=== PATIENT | male | born 1955 | race Caucasian/White ===

== ENCOUNTER 2016-09-30 09:19 | Emergency (ER) | payer OTHER ==
[~2016-09-30 09:19] MED LIST: ALLO100T PO; ASPI81TA85 PO; FLUT11IN INH; GLIP2.5T6 PO; GUAI400T6 PO; HYDR12.55 PO; HYZA50TA2 PO; JANU50TA4 PO; LIPI10TA PO; MOME50SP; SING10TA32 PO; UROCTAB2 PO; allergy shots
[2016-09-30] MEDS ORDERED: ONDANSETRON 4MG/2ML VIAL (J2405) As Ordered ONE (09:42)
[2016-09-30] MEDS ORDERED: KETOROLAC 30 MG/ML VIAL (J1885) As Ordered ONE (09:42)
[2016-09-30 10:24] LABS: BASO % 0.3 % (0.0-1.0); EOS # 0.2 K/mm3 (0.0-0.50); EOS % 2.2 % (0.0-3.0); LARGE UNSTAINED CELL # 0.1 K/mm3 (0.0-0.4); LARGE UNSTAINED CELL % 1.6 % (0.0-4.0); MEAN CORPUSCULAR HEMOGLOBIN 30.1 pg (27.0-33.0); MEAN CORPUSCULAR HGB CONC 34.3 g/dl (32.0-36.5); MEAN CORPUSCULAR VOLUME 87.6 fl (80.0-96.0); MONO # 0.4 K/mm3 (0.0-0.8); MONO % 4.2 % (0.0-5.0); NEUTROPHILS % 68.7 % (36.0-66.0); PLATELET COUNT, AUTOMATED 249 k/mm3 (150-450); RED CELL DISTRIBUTION WIDTH 12.9 % (11.5-14.5); WHITE BLOOD COUNT 8.7 K/mm3 (4.0-10.0)
[2016-09-30 10:38] LABS: ALBUMIN 4.2 GM/DL (3.2-5.2); ALBUMIN/GLOBULIN RATIO 1.14 (1.00-1.93); BILIRUBIN,DIRECT 0.2 MG/DL (0.0-0.2); BILIRUBIN,TOTAL 0.8 MG/DL (0.2-1.0); CALCIUM LEVEL 9.5 MG/DL (8.8-10.2); CREATININE FOR GFR 1.33 MG/DL (0.70-1.30); GLOMERULAR FILTRATION RATE 57.8 (>49); POTASSIUM SERUM 4.2 MEQ/L (3.5-5.1); TOTAL PROTEIN 7.9 GM/DL (6.4-8.2)
[2016-09-30] MEDS ORDERED: MORPHINE 4 MG/ML 1ML SYRINGE As Ordered ONE (11:47)
--- NOTE | 2016-09-30 11:58 | REP ---
CT ABDOMEN/PELVIS WITHOUT IV OR ORAL CONTRAST: HISTORY: Right-sided flank pain. COMPARISON: CT study September 28, 2013. FINDINGS: Digital network coordinator radiograph is unremarkable. The lung bases show minimal fibrotic changes but are otherwise clear. No pleural effusion is seen. The liver and spleen are normal in size and homogeneous in texture. There are several small accessory splenules in the left upper quadrant, unchanged. Pancreas and gallbladder are unremarkable. No adrenal lesion is seen on either side. No retroperitoneal mass or adenopathy is seen. There is moderate hydronephrosis on the right with hydroureter due to a calculus in the distal ureter at the ureterovesical junction. This calculus measures 6 mm in greatest diameter. There is also a 3 mm intrarenal calculus in the right kidney lower pole. There is some perinephric stranding and periureteral stranding associated with this ureteral obstruction. No hydronephrosis is noted on the left. There is a tiny intrarenal calculus at the lower pole of the left kidney 1-2 mm in diameter. Small and large intestinal bowel loops are normal in the abdomen and pelvis. A normal appendix is seen in the right lower quadrant. No abdominal wall defect is seen. No bony destructive lesion is appreciated. IMPRESSION: 1. A 6 mm obstructive calculus right distal ureter at the ureterovesical junction with moderate right-sided hydronephrosis. 2. There is an intrarenal calculus in the lower pole of the right kidney and an intrarenal calculus in the lower pole of the left kidney. 3. Otherwise unremarkable CT study of the abdomen and pelvis. Signed by Anish Stevenson MD 09/30/2016 03:04 P
--- NOTE | 2016-09-30 12:43 | EDDOCDS ---
Nurse's Notes [facility] Name: Albert Garrett Age: 61 yrs Sex: Male : 1955 Arrival Date: 09/30/2016 Time: 09:19 Bed I6 / 28 Private MD: SHREYAS Beck Diagnosis: Hydronephrosis with renal and ureteral calculous obstruction-6mm right UVJ stone with moderate hydronephrosis Presentation: 09/30 09:25 Presenting complaint: Patient states: Right flank pain began this am. Acute mlb1 neurological deficits are not present. Mechanism of Injury: No Mechanism of Injury. Adult Sepsis Screening: The patient does not have new or worsening altered mentation. Patient's respiratory rate is less than 22. Systolic blood pressure is greater than 100. Patient has a qSOFA score of 0- Negative Sepsis Screen. Suicide/Homicide risk assessment- the patient denies having any suicidal and/or homicidal ideations and does not present with any other emotional, behavioral or mental health complaints. Status: Patient is not a director of family service center or dependent. Transition of care: patient was not received from another setting of care. 09:25 Acuity: VAL Level 3 mlb1 09:25 Method Of Arrival: Walkin/Carried/Asstd mlb1 Triage Assessment: 09:31 General: Appears uncomfortable, Behavior is appropriate for age, cooperative. Pain: mlb1 Location: right flank Pain currently is 10 out of 10 on a pain scale. HIV screening NA for this visit Offered previously. Historical: - Allergies: Advair Diskus; - Home Meds: 1. Janumet 50-500 mg oral tab 1 tab 2 times per day 2. Hyzaar 100-12.5 mg Oral tab 1 tab once daily 3. hydrochlorothiazide 12.5 mg Oral tab 1 tab once daily 4. guaifenesin 600 mg Oral TbER 1 tab every 12 hours 5. cetirizine 10 mg oral tab 1 tab once daily 6. Singulair 10 mg Oral tab 1 tab once daily 7. allopurinol 100 mg Oral tab 1 tab 2 times per day 8. Nasonex 50 mcg/actuation Nasal spry 2 sprays once daily 9. Asmanex HFA 200 mcg/actuation inhalation HFAA 1 puff 2 times per day 10. Lipitor 10 mg Oral tab 1 tab once daily 11. potassium citrate 10 mEq (1,080 mg) oral TbER 2 tabs 3 times per day 12. ipratropium bromide 18 mcg/actuation inhalation aero three times a day - PMHx: High Cholesterol; Diabetes - NIDDM: controlled; COPD; Hypertension; Kidney stones; - PSHx: Hernia repair; Arthroscopy, Knee; Lithotripsy; - Social history: Smoking status: Patient states former smoker of tobacco. No barriers to communication noted, The patient speaks fluent Tajik, Speaks appropriately for age. - Family history: Not pertinent. - : The pt / caregiver states he / she is not on anticoagulants. Home medication list is obtained from the patient. - Exposure Risk Screening:: None identified. Screenin:40 Screening information is obtained from the patient. Fall risk: No risks identified. dsf Assistance ADL's: requires no assistance with activities of daily living. Abuse/DV Screen: The patient / caregiver reports he/she is: not in a situation that causes fear, pain or injury. Nutritional screening: No deficits noted. Advance Directives: Currently, there is no health care proxy. home support is adequate. Assessment: 10:10 Adult Sepsis Screening: The patient does not have new or worsening altered mentation. dsf Patient's respiratory rate is less than 22. Systolic blood pressure is greater than 100. Patient has a qSOFA score of 0- Negative Sepsis Screen. General: Appears uncomfortable, Behavior is appropriate for age. Pain: Location: right flank Pain currently is 10 out of 10 on a pain scale. right testicle Quality of pain is described as stabbing, Pain began 0800. Neurological: Level of Consciousness is awake, alert, Oriented to person, place, time. Cardiovascular: Capillary refill < 3 seconds Heart tones S1 S2 present. Respiratory: Airway is patent Respiratory effort is even, unlabored, Respiratory pattern is regular, symmetrical, Breath sounds are clear bilaterally. GI: Abdomen is obese, Bowel sounds present X 4 quads. Abd is soft and non tender X 4 quads. Reports nausea. Derm: Skin is pink, warm & dry. Musculoskeletal: Reports right flank pain. 10:29 General: Appears in no apparent distress, comfortable, Behavior is appropriate for age, dsf cooperative. Pain: Location: right flank Pain currently is 3 out of 10 on a pain scale. Neurological: Level of Consciousness is awake, alert. Cardiovascular: Capillary refill < 3 seconds. Respiratory: Airway is patent Respiratory effort is even, unlabored, Respiratory pattern is regular, symmetrical. Derm: Skin is pink, warm & dry. 11:08 General: pt returned from CT. Appears in no distress at this time. pt smiling stating dsf he feels a lot better. 11:51 General: Appears in no apparent distress, Behavior is appropriate for age, cooperative. dsf Pain: Location: right flank Pain currently is 5 out of 10 on a pain scale. right testicle Quality of pain is described as stabbing. Neurological: Level of Consciousness is awake, alert. Cardiovascular: Capillary refill < 3 seconds. Respiratory: Airway is patent Respiratory effort is even, unlabored, Respiratory pattern is regular, symmetrical. Derm: Skin is pink, warm & dry. 12:17 General: Appears in no apparent distress, Behavior is appropriate for age, cooperative. dsf Pain: Denies pain. Neurological: Level of Consciousness is awake, alert. Cardiovascular: Capillary refill < 3 seconds. Respiratory: Airway is patent Respiratory effort is even, unlabored, Respiratory pattern is regular, symmetrical. Derm: Skin is pink, warm & dry. 12:41 General: Appears in no apparent distress, comfortable, Behavior is appropriate for age, dsf cooperative. Pain: Denies pain. Neurological: Level of Consciousness is awake, alert, Oriented to person, place, time. Cardiovascular: Capillary refill < 3 seconds. Respiratory: Airway is patent Respiratory effort is even, unlabored, Respiratory pattern is regular, symmetrical. Derm: Skin is pink, warm & dry. Vital Signs: 09:20 BP 156 / 87 RA Sitting (auto/lg); Pulse 59; Resp 22; Temp 96.0; Pulse Ox 100% on R/A; jrd Weight 106.14 kg (R); Height 68 in. (172.72 cm); Pain 10/10; 10:29 Pain 3/10; dsf 12:18 BP 126 / 75; Pulse 73; Resp 20; Temp 98.3(TE); Pulse Ox 97% on R/A; Pain 0/10; dsf 09:20 Body Mass Index 35.58 (106.14 kg, 172.72 cm) [facility] Vitals: 09:20 Log In Time: September 30, 2016 at 09:15. [facility] ED Course: 09:20 Patient visited by Patrick Kaur PCA. jrd 09:20 Ebony [facility] is Private Physician. jrd 09:20 Patient moved to Waiting jrd 09:22 Patient visited by Patrick Kaur PCA. jrd 09:22 Patient moved to Pre RCE jrd 09:25 Patient visited by Chip Norman, JC. mlb1 09:26 Triage Initiated mlb1 09:32 Patient visited by Chip Norman, JC. mlb1 09:32 Kaya Felix RN is Primary Nurse. mlb1 09:32 Hayley Farrell RN is Primary Nurse. mlb1 09:32 Patient moved to I6 mlb1 09:32 The patient / caregiver is instructed regarding the plan of care and ED course. Patient dsf has correct armband on for positive identification. Placed in gown. Bed in low position. Call light in reach. Side rails up X2. 09:36 Bro Johns PA-C is PHCP. ar2 09:36 Nas Amanda MD is Attending Physician. ar2 09:36 Patient visited by rBo Johns PA-C. ar2 10:07 UA Sent. jc4 10:07 Liver Profile Sent. jc4 10:07 MED Profile Sent. jc4 10:07 CBC with Diff Sent. jc4 10:07 Inserted saline lock: 20 gauge in right antecubital area. ja5 10:12 Patient visited by Jyotsna Melo RN. dsf 10:31 Patient visited by Jyotsna Melo RN. dsf 10:[address] dsf 11:08 Patient moved to I6 dsf 11:09 Patient visited by Jyotsna Melo RN. dsf 11:38 [facility] Payment Agreement was scanned into [employer] and attached to record. lg 11:51 Patient visited by Jyotsna Melo RN. dsf 12:09 CT ABD & PELVIS: No Contrast Returned. EDMS 12:24 Jose E Leonard is Referral Physician. ar2 12:40 Discontinued lock intact, bleeding controlled, pressure dressing applied, No dsf redness/swelling at site. No procedures done that require assistance. Administered Medications: 10:09 Drug: NS 0.9% 1000 ml [sodium chloride 0.9 % injection solution] Route: IV; Rate: dsf bolus; Site: right antecubital; 12:43 Follow up: IV Status: Completed infusion; IV Intake: 1000ml dsf 10:10 Drug: ketorolac 30 mg [ketorolac 30 mg/mL (1 mL) injection solution (1 mL)] Route: IVP; dsf Site: right antecubital; 10:29 Follow up: Pain 3/10 Adult dsf 10:10 Drug: Ondansetron 4 mg [ondansetron HCl 2 mg/mL intravenous solution (2 mL)] Route: dsf IVP; Site: right antecubital; 11:50 Drug: morphine 4 mg [morphine 4 mg/mL intravenous cartridge (1 mL)] Route: IVP; Site: dsf right antecubital; 12:18 Follow up: BP 126 / 75; Pulse 73 bpm; Resp 20 bpm; Temp 98.3 Temporal; Pulse Ox 97% RA; dsf Pain 0/10 Adult Intake: 12:43 IV: 1000.00ml; Total: 1000.00ml. dsf Order Results: Lab Order: CBC with Diff; SPEC'M 09/30/16 10:04 Test: WHITE BLOOD COUNT; Value: 8.7; Range: 4.0-10.0; Units: K/mm3; Status: F Test: RED BLOOD COUNT; Value: 5.51; Range: 4.30-6.10; Units: M/mm3; Status: F Test: HEMOGLOBIN; Value: 16.6; Range: 14.0-18.0; Units: g/dl; Status: F Test: HEMATOCRIT; Value: 48.3; Range: 42.0-52.0; Units: %; Status: F Test: MEAN CORPUSCULAR VOLUME; Value: 87.6; Range: 80.0-96.0; Units: fl; Status: F Test: MEAN CORPUSCULAR HEMOGLOBIN; Value: 30.1; Range: 27.0-33.0; Units: pg; Status: F Test: MEAN CORPUSCULAR HGB CONC; Value: 34.3; Range: 32.0-36.5; Units: g/dl; Status: F Test: RED CELL DISTRIBUTION WIDTH; Value: 12.9; Range: 11.5-14.5; Units: %; Status: F Test: PLATELET COUNT, AUTOMATED; Value: 249; Range: 150-450; Units: k/mm3; Status: F Test: NEUTROPHILS %; Value: 68.7; Range: 36.0-66.0; Abnormal: Above high normal; Units: %; Status: F Test: LYMPH %; Value: 23.0; Range: 24.0-44.0; Abnormal: Below low normal; Units: %; Status: F Test: MONO %; Value: 4.2; Range: 0.0-5.0; Units: %; Status: F Test: EOS %; Value: 2.2; Range: 0.0-3.0; Units: %; Status: F Test: BASO %; Value: 0.3; Range: 0.0-1.0; Units: %; Status: F Test: LARGE UNSTAINED CELL %; Value: 1.6; Range: 0.0-4.0; Units: %; Status: F Test: NEUTROPHILS #; Value: 6.0; Range: 1.8-7.7; Units: K/mm3; Status: F Test: LYMPH #; Value: 2.0; Range: 1.5-4.5; Units: K/mm3; Status: F Test: MONO #; Value: 0.4; Range: 0.0-0.8; Units: K/mm3; Status: F Test: EOS #; Value: 0.2; Range: 0.0-0.50; Units: K/mm3; Status: F Test: BASO #; Value: 0.0; Range: 0.0-0.2; Units: K/mm3; Status: F Test: LARGE UNSTAINED CELL #; Value: 0.1; Range: 0.0-0.4; Units: K/mm3; Status: F Lab Order: MED Profile; SPEC'M 09/30/16 10:04 Test: GLUCOSE, FASTING; Value: 181; Range: 80-110; Abnormal: Above high normal; Units: MG/DL; Status: F Test: BLOOD UREA NITROGEN; Value: 23; Range: 7-18; Abnormal: Above high normal; Units: MG/DL; Status: F Test: CREATININE FOR GFR; Value: 1.33; Range: 0.70-1.30; Abnormal: Above high normal; Units: MG/DL; Status: F Test: GLOMERULAR FILTRATION RATE; Value: 57.8; Range: >49; Status: F Test: SODIUM LEVEL; Value: 140; Range: 136-145; Units: MEQ/L; Status: F Test: POTASSIUM SERUM; Value: 4.2; Range: 3.5-5.1; Units: MEQ/L; Status: F Test: CHLORIDE LEVEL; Value: 106; Range: 98-107; Units: MEQ/L; Status: F Test: CARBON DIOXIDE LEVEL; Value: 24; Range: 21-32; Units: MEQ/L; Status: F Test: ANION GAP; Value: 10; Range: 8-16; Units: MEQ/L; Status: F Test: CALCIUM LEVEL; Value: 9.5; Range: 8.8-10.2; Units: MG/DL; Status: F Test Note: ; Units are mL/min/1.73 m2 Chronic Kidney Disease Staging per NKF: Stage I & II GFR >=60 Normal to Mildly Decreased Stage III GFR 30-59 Moderately Decreased Stage IV GFR 15-29 Severely Decreased Stage V GFR <15 Very Little GFR Left ESRD GFR <15 on [employer] INTERN Lab Order: Liver Profile; SPEC'M 09/30/16 10:04 Test: AST/SGOT; Value: 16; Range: 15-37; Units: U/L; Status: F Test: ALT/SGPT; Value: 39; Range: 12-78; Units: U/L; Status: F Test: ALKALINE PHOSPHATASE; Value: 127; Range: 45-117; Abnormal: Above high normal; Units: U/L; Status: F Test: BILIRUBIN,TOTAL; Value: 0.8; Range: 0.2-1.0; Units: MG/DL; Status: F Test: BILIRUBIN,DIRECT; Value: 0.2; Range: 0.0-0.2; Units: MG/DL; Status: F Test: TOTAL PROTEIN; Value: 7.9; Range: 6.4-8.2; Units: GM/DL; Status: F Test: ALBUMIN; Value: 4.2; Range: 3.2-5.2; Units: GM/DL; Status: F Test: ALBUMIN/GLOBULIN RATIO; Value: 1.14; Range: 1.00-1.93; Status: F Lab Order: UA; SPEC'M 09/30/16 10:04 Test: APPEARANCE, URINE; Value: CLEAR; Range: CLEAR; Status: F Test: COLOR, URINE; Value: YELLOW; Range: YELLOW; Status: F Test: PH,URINE; Value: 8.0; Range: 5.0-9.0; Units: UNITS; Status: F Test: SPECIFIC GRAVITY URINE AUTO; Value: 1.017; Range: 1.002-1.035; Status: F Test: PROTEIN, URINE AUTO; Value: NEGATIVE; Range: NEGATIVE; Units: mg/dL; Status: F Test: GLUCOSE, URINE (UA) AUTO; Value: NEGATIVE; Range: NEGATIVE; Units: mg/dL; Status: F Test: KETONE, URINE AUTO; Value: TRACE; Range: NEGATIVE; Abnormal: Above high normal; Units: mg/dL; Status: F Test: UROBILINOGEN, URINE AUTO; Value: 0.2; Range: 0.0-2.0; Units: mg/dL; Status: F Test: BILIRUBIN, URINE AUTO; Value: NEGATIVE; Range: NEGATIVE; Status: F Test: NITRITE, URINE AUTO; Value: NEGATIVE; Range: NEGATIVE; Status: F Test: LEUKOCYTE ESTERASE, URINE AUTO; Value: NEGATIVE; Range: NEGATIVE; Status: F Test: BLOOD, URINE BLOOD; Value: 2+; Range: NEGATIVE; Abnormal: Above high normal; Status: F Test: WBC, URINE AUTO; Value: 1; Range: 0-3; Units: /HPF; Status: F Test: RBC, URINE AUTO; Value: 50; Range: 0-3; Abnormal: Above high normal; Units: /HPF; Status: F Test: BACTERIA, URINE AUTO; Value: NEGATIVE; Range: NEGATIVE; Status: F Test: SQUAMOUS EPITHELIAL CELL UR AU; Value: 0; Range: 0-6; Units: /HPF; Status: F Test: MUCUS, URINE; Value: SMALL; Range: NEGATIVE; Status: F Test: HYALINE CAST, URINE AUTO; Value: 0; Range: 0-1; Units: /LPF; Status: F Radiology Order: CT ABD & PELVIS: No Contrast Test: CT ABD & PELVIS: No Contrast REASON FOR EXAMINATION: right flank pain; CT ABDOMEN/PELVIS WITHOUT IV OR ORAL CONTRAST:; ; HISTORY: Right-sided flank pain.; ; COMPARISON: CT study September 28, 2013.; ; FINDINGS: Digital strategic partnership specialist radiograph is unremarkable. The lung bases show minimal; fibrotic changes but are otherwise clear. No pleural effusion is seen.; ; The liver and spleen are normal in size and homogeneous in texture. There are; several small accessory splenules in the left upper quadrant, unchanged. Pancreas; and gallbladder are unremarkable. No adrenal lesion is seen on either side. No; retroperitoneal mass or adenopathy is seen.; ; There is moderate hydronephrosis on the right with hydroureter due to a calculus; in the distal ureter at the ureterovesical junction. This calculus measures 6 mm; in greatest diameter. There is also a 3 mm intrarenal calculus in the right; kidney lower pole. There is some perinephric stranding and periureteral; stranding associated with this ureteral obstruction. No hydronephrosis is noted; on the left. There is a tiny intrarenal calculus at the lower pole of the left; kidney 1-2 mm in diameter.; ; Small and large intestinal bowel loops are normal in the abdomen and pelvis. A; normal appendix is seen in the right lower quadrant. No abdominal wall defect is; seen. No bony destructive lesion is appreciated.; ; IMPRESSION:; 1. A 6 mm obstructive calculus right distal ureter at the ureterovesical; junction with moderate right-sided hydronephrosis.; 2. There is an intrarenal calculus in the lower pole of the right kidney and an; intrarenal calculus in the lower pole of the left kidney.; 3. Otherwise unremarkable CT study of the abdomen and pelvis.; ; ; ; ; Unreviewed; Outcome: 12:24 Discharge ordered by Provider. ar2 12:41 Discharge Assessment: Patient awake, alert and oriented x 3. No cognitive and/or dsf functional deficits noted. Patient verbalized understanding of disposition instructions. patient administered narcotics - yes. Pt provided with safe discharge. The following High Risk Discharge criteria are identified: None. Discharged to home ambulatory, with significant other. Condition: stable. Discharge instructions given to patient, Instructed on discharge instructions, follow up and referral plans. medication usage, no driving heavy equipment, Demonstrated understanding of instructions, medications, Pt was receptive of discharge instructions/ teaching. Prescriptions given X 4. CT Study completed. Property sent home with patient. 12:42 Patient left the ED. dsf Signatures: Dispatcher [employer] EDPennie Stevens, Reg Reg lg Chip Norman RN RN mlb1 Bro Johns, PA-C PA-C ar2 Kaya Felix, RN RN jc4 Jyotsna Melo RN RN dsf Patrick Kaur, CRYPTANALYST CRYPTANALYST jrd Hayley Farrell RN RN ja5 Corrections: (The following items were deleted from the chart) 10: 10:07 Inserted saline lock: in right antecubital area ja5 ja5 10: 10:27 Inserted saline lock: 20 gauge ja5 ja5 MTDD
--- NOTE | 2016-09-30 12:43 | EDDOCDS ---
Physician Documentation [facility] Name: Albert Garrett Age: 61 yrs Sex: Male : 1955 Arrival Date: 09/30/2016 Time: 09:19 Bed I6 / 28 Private MD: [place] [facility]position: 09/30/16 12:24 Discharged to Home/Self Care. Impression: Hydronephrosis with renal and ureteral calculous obstruction - 6mm right UVJ stone with moderate hydronephrosis. - Condition is Stable. - Discharge Instructions: Kidney Stones. - Prescriptions for Colace 100 mg Oral Tablet - take 1 tablet by ORAL route every 12 hours; 14 tablet. Percocet 5- 325 mg Oral Tablet - take 1 tablet by ORAL route every 6 hours As needed MDD: 4 tabs; 20 tablet. Flomax 0.4 mg Oral Capsule, Sust. Release 24 hr - take 1 capsule by ORAL route once daily 1/2 hour following the same meal each day; 10 capsule. ZOFRAN ODT 4 mg - dissolve 1 tablet by ORAL route 4 times per day As needed do not chew, do not swallow whole; 10 tablet. - Medication Reconciliation, Local Pharmacy Hours form. - Follow up: Jose E Leonard; When: Call to arrange an appointment; Reason: Recheck today's complaints. - Problem is new. - Symptoms have improved. Historical: - Allergies: Advair Diskus; - Home Meds: 1. Janumet 50-500 mg oral tab 1 tab 2 times per day 2. Hyzaar 100-12.5 mg Oral tab 1 tab once daily 3. hydrochlorothiazide 12.5 mg Oral tab 1 tab once daily 4. guaifenesin 600 mg Oral TbER 1 tab every 12 hours 5. cetirizine 10 mg oral tab 1 tab once daily 6. Singulair 10 mg Oral tab 1 tab once daily 7. allopurinol 100 mg Oral tab 1 tab 2 times per day 8. Nasonex 50 mcg/actuation Nasal spry 2 sprays once daily 9. Asmanex HFA 200 mcg/actuation inhalation HFAA 1 puff 2 times per day 10. Lipitor 10 mg Oral tab 1 tab once daily 11. potassium citrate 10 mEq (1,080 mg) oral TbER 2 tabs 3 times per day 12. ipratropium bromide 18 mcg/actuation inhalation aero three times a day - PMHx: High Cholesterol; Diabetes - NIDDM: controlled; COPD; Hypertension; Kidney stones; - PSHx: Hernia repair; Arthroscopy, Knee; Lithotripsy; - Social history: Smoking status: Patient states former smoker of tobacco. No barriers to communication noted, The patient speaks fluent Romanian, Speaks appropriately for age. - Family history: Not pertinent. - : The pt / caregiver states he / she is not on anticoagulants. Home medication list is obtained from the patient. - Exposure Risk Screening:: None identified. Vital Signs: 09/30 09:20 BP 156 / 87 RA Sitting (auto/lg); Pulse 59; Resp 22; Temp 96.0; Pulse Ox 100% on R/A; jrd Weight 106.14 kg / 234 lbs (R); Height 68 in. (172.72 cm); Pain 10/10; 10:29 Pain 3/10; dsf 12:18 BP 126 / 75; Pulse 73; Resp 20; Temp 98.3(TE); Pulse Ox 97% on R/A; Pain 0/10; dsf 09:20 Body Mass Index 35.58 (106.14 kg, 172.72 cm) jrd MDM: 09:40 IV Saline Lock ordered. ar2 09:40 ketorolac 30 mg IVP once ordered. ar2 09:40 Ondansetron 4 mg IVP once ordered. ar2 09:40 NS 0.9% 1000 ml IV at bolus once ordered. ar2 09:41 CBC with Diff Ordered. EDMS 09:41 MED Profile Ordered. EDMS 09:41 Liver Profile Ordered. EDMS 09:41 UA Ordered. EDMS 09:42 NOTHING BY MOUTH+DIET ordered. EDMS 10:17 Financial registration complete. lg 10:39 CBC with Diff Reviewed. ar2 10:39 MED Profile Reviewed. ar2 10:39 Liver Profile Reviewed. ar2 10:39 UA Reviewed. ar2 10:41 CT ABD & PELVIS: No Contrast Ordered. EDMS 11:38 [facility] Payment Agreement was scanned into [employer] and attached to record. lg 11:45 morphine 4 mg IVP once ordered. ar2 12:21 Dispense Urine Strainer ordered. ar2 Administered Medications: 10:09 Drug: NS 0.9% 1000 ml [sodium chloride 0.9 % injection solution] Route: IV; Rate: dsf bolus; Site: right antecubital; 12:43 Follow up: IV Status: Completed infusion; IV Intake: 1000ml dsf 10:10 Drug: ketorolac 30 mg [ketorolac 30 mg/mL (1 mL) injection solution (1 mL)] Route: IVP; dsf Site: right antecubital; 10:29 Follow up: Pain 3/10 Adult dsf 10:10 Drug: Ondansetron 4 mg [ondansetron HCl 2 mg/mL intravenous solution (2 mL)] Route: dsf IVP; Site: right antecubital; 11:50 Drug: morphine 4 mg [morphine 4 mg/mL intravenous cartridge (1 mL)] Route: IVP; Site: dsf right antecubital; 12:18 Follow up: BP 126 / 75; Pulse 73 bpm; Resp 20 bpm; Temp 98.3 Temporal; Pulse Ox 97% RA; dsf Pain 0/10 Adult Signatures: Dispatcher [employer] EDPennie Stevens, Derrell Reg lg Chip Norman, RN RN mlb1 Bro Johns PA-C PADonna ar2 Jyotsna Melo RN RN dsf The chart was reviewed and I authenticate all verbal orders and agree with the evaluation and treatment provided.Attachments: 11:38 [facility] Payment Agreement lg MTDD
--- NOTE | 2016-10-02 13:44 | EDDOCDS ---
Physician Documentation [facility] Name: Albert Garrett Age: 61 yrs Sex: Male : 1955 Arrival Date: 09/30/2016 Time: 09:19 Bed I6 / 28 Private MD: [place] [facility] [place]position: 09/30/16 12:24 Discharged to Home/Self Care. Impression: Hydronephrosis with renal and ureteral calculous obstruction - 6mm right UVJ stone with moderate hydronephrosis. - Condition is Stable. - Discharge Instructions: Kidney Stones. - Prescriptions for Colace 100 mg Oral Tablet - take 1 tablet by ORAL route every 12 hours; 14 tablet. Percocet 5- 325 mg Oral Tablet - take 1 tablet by ORAL route every 6 hours As needed MDD: 4 tabs; 20 tablet. Flomax 0.4 mg Oral Capsule, Sust. Release 24 hr - take 1 capsule by ORAL route once daily 1/2 hour following the same meal each day; 10 capsule. ZOFRAN ODT 4 mg - dissolve 1 tablet by ORAL route 4 times per day As needed do not chew, do not swallow whole; 10 tablet. - Medication Reconciliation, Local Pharmacy Hours form. - Follow up: Jose E Leonard; When: Call to arrange an appointment; Reason: Recheck today's complaints. - Problem is new. - Symptoms have improved. Historical: - Allergies: Advair Diskus; - Home Meds: 1. Janumet 50-500 mg oral tab 1 tab 2 times per day 2. Hyzaar 100-12.5 mg Oral tab 1 tab once daily 3. hydrochlorothiazide 12.5 mg Oral tab 1 tab once daily 4. guaifenesin 600 mg Oral TbER 1 tab every 12 hours 5. cetirizine 10 mg oral tab 1 tab once daily 6. Singulair 10 mg Oral tab 1 tab once daily 7. allopurinol 100 mg Oral tab 1 tab 2 times per day 8. Nasonex 50 mcg/actuation Nasal spry 2 sprays once daily 9. Asmanex HFA 200 mcg/actuation inhalation HFAA 1 puff 2 times per day 10. Lipitor 10 mg Oral tab 1 tab once daily 11. potassium citrate 10 mEq (1,080 mg) oral TbER 2 tabs 3 times per day 12. ipratropium bromide 18 mcg/actuation inhalation aero three times a day - PMHx: High Cholesterol; Diabetes - NIDDM: controlled; COPD; Hypertension; Kidney stones; - PSHx: Hernia repair; Arthroscopy, Knee; Lithotripsy; - Social history: Smoking status: Patient states former smoker of tobacco. No barriers to communication noted, The patient speaks fluent Telugu, Speaks appropriately for age. - Family history: Not pertinent. - : The pt / caregiver states he / she is not on anticoagulants. Home medication list is obtained from the patient. - Exposure Risk Screening:: None identified. Vital Signs: 09/30 09:20 BP 156 / 87 RA Sitting (auto/lg); Pulse 59; Resp 22; Temp 96.0; Pulse Ox 100% on R/A; jrd Weight 106.14 kg / 234 lbs (R); Height 68 in. (172.72 cm); Pain 10/10; 10:29 Pain 3/10; dsf 12:18 BP 126 / 75; Pulse 73; Resp 20; Temp 98.3(TE); Pulse Ox 97% on R/A; Pain 0/10; dsf 09:20 Body Mass Index 35.58 (106.14 kg, 172.72 cm) jrd MDM: 09:40 IV Saline Lock ordered. ar2 09:40 ketorolac 30 mg IVP once ordered. ar2 09:40 Ondansetron 4 mg IVP once ordered. ar2 09:40 NS 0.9% 1000 ml IV at bolus once ordered. ar2 09:41 CBC with Diff Ordered. EDMS 09:41 MED Profile Ordered. EDMS 09:41 Liver Profile Ordered. EDMS 09:41 UA Ordered. EDMS 09:42 NOTHING BY MOUTH+DIET ordered. EDMS 10:17 Financial registration complete. lg 10:39 CBC with Diff Reviewed. ar2 10:39 MED Profile Reviewed. ar2 10:39 Liver Profile Reviewed. ar2 10:39 UA Reviewed. ar2 10:41 CT ABD & PELVIS: No Contrast Ordered. EDMS 11:38 [facility] [place] Payment Agreement was scanned into [employer] and attached to record. lg 11:45 morphine 4 mg IVP once ordered. ar2 12:21 Dispense Urine Strainer ordered. ar2 10/01 13:31 T-Sheet-- Draft Copy was scanned into [employer] and attached to record. gb 13:31 Radiology Report was scanned into [employer] and attached to record. gb Administered Medications: 09/30 10:09 Drug: NS 0.9% 1000 ml [sodium chloride 0.9 % injection solution] Route: IV; Rate: dsf bolus; Site: right antecubital; 12:43 Follow up: IV Status: Completed infusion; IV Intake: 1000ml dsf 10:10 Drug: ketorolac 30 mg [ketorolac 30 mg/mL (1 mL) injection solution (1 mL)] Route: IVP; dsf Site: right antecubital; 10:29 Follow up: Pain 3/10 Adult dsf 10:10 Drug: Ondansetron 4 mg [ondansetron HCl 2 mg/mL intravenous solution (2 mL)] Route: dsf IVP; Site: right antecubital; 11:50 Drug: morphine 4 mg [morphine 4 mg/mL intravenous cartridge (1 mL)] Route: IVP; Site: dsf right antecubital; 12:18 Follow up: BP 126 / 75; Pulse 73 bpm; Resp 20 bpm; Temp 98.3 Temporal; Pulse Ox 97% RA; dsf Pain 0/10 Adult Signatures: Dispatcher [employer] EDMS Brynn Hackett, Reg Reg gb Pennie Bach, Reg Reg lg Chip Norman RN RN mlb1 Bro Johns PA-C PA-C ar2 Jyotsna Melo RN RN dsf The chart was reviewed and I authenticate all verbal orders and agree with the evaluation and treatment provided.Attachments: 11:38 [facility] Payment Agreement lg 10/01 13:31 T-Sheet-- Draft Copy Chart Complete MTDD
--- NOTE | 2016-10-02 13:44 | EDDOCDS ---
Physician Documentation [facility] Name: Albert Garrett Age: 61 yrs Sex: Male : 1955 Arrival Date: 09/30/2016 Time: 09:19 Bed I6 / 28 Private MD: Ebony [facility] [place] Disposition: 09/30/16 12:24 Discharged to Home/Self Care. Impression: Hydronephrosis with renal and ureteral calculous obstruction - 6mm right UVJ stone with moderate hydronephrosis. - Condition is Stable. - Discharge Instructions: Kidney Stones. - Prescriptions for Colace 100 mg Oral Tablet - take 1 tablet by ORAL route every 12 hours; 14 tablet. Percocet 5- 325 mg Oral Tablet - take 1 tablet by ORAL route every 6 hours As needed MDD: 4 tabs; 20 tablet. Flomax 0.4 mg Oral Capsule, Sust. Release 24 hr - take 1 capsule by ORAL route once daily 1/2 hour following the same meal each day; 10 capsule. ZOFRAN ODT 4 mg - dissolve 1 tablet by ORAL route 4 times per day As needed do not chew, do not swallow whole; 10 tablet. - Medication Reconciliation, Local Pharmacy Hours form. - Follow up: Jose E Leonard; When: Call to arrange an appointment; Reason: Recheck today's complaints. - Problem is new. - Symptoms have improved. Historical: - Allergies: Advair Diskus; - Home Meds: 1. Janumet 50-500 mg oral tab 1 tab 2 times per day 2. Hyzaar 100-12.5 mg Oral tab 1 tab once daily 3. hydrochlorothiazide 12.5 mg Oral tab 1 tab once daily 4. guaifenesin 600 mg Oral TbER 1 tab every 12 hours 5. cetirizine 10 mg oral tab 1 tab once daily 6. Singulair 10 mg Oral tab 1 tab once daily 7. allopurinol 100 mg Oral tab 1 tab 2 times per day 8. Nasonex 50 mcg/actuation Nasal spry 2 sprays once daily 9. Asmanex HFA 200 mcg/actuation inhalation HFAA 1 puff 2 times per day 10. Lipitor 10 mg Oral tab 1 tab once daily 11. potassium citrate 10 mEq (1,080 mg) oral TbER 2 tabs 3 times per day 12. ipratropium bromide 18 mcg/actuation inhalation aero three times a day - PMHx: High Cholesterol; Diabetes - NIDDM: controlled; COPD; Hypertension; Kidney stones; - PSHx: Hernia repair; Arthroscopy, Knee; Lithotripsy; - Social history: Smoking status: Patient states former smoker of tobacco. No barriers to communication noted, The patient speaks fluent Arabic, Speaks appropriately for age. - Family history: Not pertinent. - : The pt / caregiver states he / she is not on anticoagulants. Home medication list is obtained from the patient. - Exposure Risk Screening:: None identified. Vital Signs: 09/30 09:20 BP 156 / 87 RA Sitting (auto/lg); Pulse 59; Resp 22; Temp 96.0; Pulse Ox 100% on R/A; jrd Weight 106.14 kg / 234 lbs (R); Height 68 in. (172.72 cm); Pain 10/10; 10:29 Pain 3/10; dsf 12:18 BP 126 / 75; Pulse 73; Resp 20; Temp 98.3(TE); Pulse Ox 97% on R/A; Pain 0/10; dsf 09:20 Body Mass Index 35.58 (106.14 kg, 172.72 cm) jrd MDM: 09:40 IV Saline Lock ordered. ar2 09:40 ketorolac 30 mg IVP once ordered. ar2 09:40 Ondansetron 4 mg IVP once ordered. ar2 09:40 NS 0.9% 1000 ml IV at bolus once ordered. ar2 09:41 CBC with Diff Ordered. EDMS 09:41 MED Profile Ordered. EDMS 09:41 Liver Profile Ordered. EDMS 09:41 UA Ordered. EDMS 09:42 NOTHING BY MOUTH+DIET ordered. EDMS 10:17 Financial registration complete. lg 10:39 CBC with Diff Reviewed. ar2 10:39 MED Profile Reviewed. ar2 10:39 Liver Profile Reviewed. ar2 10:39 UA Reviewed. ar2 10:41 CT ABD & PELVIS: No Contrast Ordered. EDMS 11:38 [facility] [place] Payment Agreement was scanned into [employer] and attached to record. lg 11:45 morphine 4 mg IVP once ordered. ar2 12:21 Dispense Urine Strainer ordered. ar2 10/01 13:31 T-Sheet-- Draft Copy was scanned into [employer] and attached to record. gb 13:31 Radiology Report was scanned into [employer] and attached to record. gb Administered Medications: 09/30 10:09 Drug: NS 0.9% 1000 ml [sodium chloride 0.9 % injection solution] Route: IV; Rate: dsf bolus; Site: right antecubital; 12:43 Follow up: IV Status: Completed infusion; IV Intake: 1000ml dsf 10:10 Drug: ketorolac 30 mg [ketorolac 30 mg/mL (1 mL) injection solution (1 mL)] Route: IVP; dsf Site: right antecubital; 10:29 Follow up: Pain 3/10 Adult dsf 10:10 Drug: Ondansetron 4 mg [ondansetron HCl 2 mg/mL intravenous solution (2 mL)] Route: dsf IVP; Site: right antecubital; 11:50 Drug: morphine 4 mg [morphine 4 mg/mL intravenous cartridge (1 mL)] Route: IVP; Site: dsf right antecubital; 12:18 Follow up: BP 126 / 75; Pulse 73 bpm; Resp 20 bpm; Temp 98.3 Temporal; Pulse Ox 97% RA; dsf Pain 0/10 Adult Signatures: Dispatcher [employer] EDMS Brynn Hackett, Reg Reg gb Pennie Bach, Reg Reg lg Chip Norman RN RN mlb1 Bro Johns PA-C PA-C ar2 Jyotsna Melo RN RN dsf The chart was reviewed and I authenticate all verbal orders and agree with the evaluation and treatment provided.Attachments: 11:38 [facility] Payment Agreement lg 10/01 13:31 T-Sheet-- Draft Copy Chart Complete MTDD
--- NOTE | 2016-10-02 13:44 | EDDOCDS ---
Nurse's Notes [facility] Name: Albert Garrett Age: 61 yrs Sex: Male : 1955 Arrival Date: 09/30/2016 Time: 09:19 Bed I6 / 28 Private MD: SHREYAS Beck Diagnosis: Hydronephrosis with renal and ureteral calculous obstruction-6mm right UVJ stone with moderate hydronephrosis Presentation: 09/30 09:25 Presenting complaint: Patient states: Right flank pain began this am. Acute mlb1 neurological deficits are not present. Mechanism of Injury: No Mechanism of Injury. Adult Sepsis Screening: The patient does not have new or worsening altered mentation. Patient's respiratory rate is less than 22. Systolic blood pressure is greater than 100. Patient has a qSOFA score of 0- Negative Sepsis Screen. Suicide/Homicide risk assessment- the patient denies having any suicidal and/or homicidal ideations and does not present with any other emotional, behavioral or mental health complaints. 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 Transition of care: patient was not received from another setting of care. 09:25 Acuity: VAL Level 3 mlb1 09:25 Method Of Arrival: Walkin/Carried/Asstd mlb1 Triage Assessment: 09:31 General: Appears uncomfortable, Behavior is appropriate for age, cooperative. Pain: mlb1 Location: right flank Pain currently is 10 out of 10 on a pain scale. HIV screening NA for this visit Offered previously. Historical: - Allergies: Advair Diskus; - Home Meds: 1. Janumet 50-500 mg oral tab 1 tab 2 times per day 2. Hyzaar 100-12.5 mg Oral tab 1 tab once daily 3. hydrochlorothiazide 12.5 mg Oral tab 1 tab once daily 4. guaifenesin 600 mg Oral TbER 1 tab every 12 hours 5. cetirizine 10 mg oral tab 1 tab once daily 6. Singulair 10 mg Oral tab 1 tab once daily 7. allopurinol 100 mg Oral tab 1 tab 2 times per day 8. Nasonex 50 mcg/actuation Nasal spry 2 sprays once daily 9. Asmanex HFA 200 mcg/actuation inhalation HFAA 1 puff 2 times per day 10. Lipitor 10 mg Oral tab 1 tab once daily 11. potassium citrate 10 mEq (1,080 mg) oral TbER 2 tabs 3 times per day 12. ipratropium bromide 18 mcg/actuation inhalation aero three times a day - PMHx: High Cholesterol; Diabetes - NIDDM: controlled; COPD; Hypertension; Kidney stones; - PSHx: Hernia repair; Arthroscopy, Knee; Lithotripsy; - Social history: Smoking status: Patient states former smoker of tobacco. No barriers to communication noted, The patient speaks fluent Vietnamese, Speaks appropriately for age. - Family history: Not pertinent. - : The pt / caregiver states he / she is not on anticoagulants. Home medication list is obtained from the patient. - Exposure Risk Screening:: None identified. Screenin:40 Screening information is obtained from the patient. Fall risk: No risks identified. dsf Assistance ADL's: requires no assistance with activities of daily living. Abuse/DV Screen: The patient / caregiver reports he/she is: not in a situation that causes fear, pain or injury. Nutritional screening: No deficits noted. Advance Directives: Currently, there is no health care proxy. home support is adequate. Assessment: 10:10 Adult Sepsis Screening: The patient does not have new or worsening altered mentation. dsf Patient's respiratory rate is less than 22. Systolic blood pressure is greater than 100. Patient has a qSOFA score of 0- Negative Sepsis Screen. General: Appears uncomfortable, Behavior is appropriate for age. Pain: Location: right flank Pain currently is 10 out of 10 on a pain scale. right testicle Quality of pain is described as stabbing, Pain began 0800. Neurological: Level of Consciousness is awake, alert, Oriented to person, place, time. Cardiovascular: Capillary refill < 3 seconds Heart tones S1 S2 present. Respiratory: Airway is patent Respiratory effort is even, unlabored, Respiratory pattern is regular, symmetrical, Breath sounds are clear bilaterally. GI: Abdomen is obese, Bowel sounds present X 4 quads. Abd is soft and non tender X 4 quads. Reports nausea. Derm: Skin is pink, warm & dry. Musculoskeletal: Reports right flank pain. 10:29 General: Appears in no apparent distress, comfortable, Behavior is appropriate for age, dsf cooperative. Pain: Location: right flank Pain currently is 3 out of 10 on a pain scale. Neurological: Level of Consciousness is awake, alert. Cardiovascular: Capillary refill < 3 seconds. Respiratory: Airway is patent Respiratory effort is even, unlabored, Respiratory pattern is regular, symmetrical. Derm: Skin is pink, warm & dry. 11:08 General: pt returned from CT. Appears in no distress at this time. pt smiling stating dsf he feels a lot better. 11:51 General: Appears in no apparent distress, Behavior is appropriate for age, cooperative. dsf Pain: Location: right flank Pain currently is 5 out of 10 on a pain scale. right testicle Quality of pain is described as stabbing. Neurological: Level of Consciousness is awake, alert. Cardiovascular: Capillary refill < 3 seconds. Respiratory: Airway is patent Respiratory effort is even, unlabored, Respiratory pattern is regular, symmetrical. Derm: Skin is pink, warm & dry. 12:17 General: Appears in no apparent distress, Behavior is appropriate for age, cooperative. dsf Pain: Denies pain. Neurological: Level of Consciousness is awake, alert. Cardiovascular: Capillary refill < 3 seconds. Respiratory: Airway is patent Respiratory effort is even, unlabored, Respiratory pattern is regular, symmetrical. Derm: Skin is pink, warm & dry. 12:41 General: Appears in no apparent distress, comfortable, Behavior is appropriate for age, dsf cooperative. Pain: Denies pain. Neurological: Level of Consciousness is awake, alert, Oriented to person, place, time. Cardiovascular: Capillary refill < 3 seconds. Respiratory: Airway is patent Respiratory effort is even, unlabored, Respiratory pattern is regular, symmetrical. Derm: Skin is pink, warm & dry. Vital Signs: 09:20 BP 156 / 87 RA Sitting (auto/lg); Pulse 59; Resp 22; Temp 96.0; Pulse Ox 100% on R/A; jrd Weight 106.14 kg (R); Height 68 in. (172.72 cm); Pain 10/10; 10:29 Pain 3/10; dsf 12:18 BP 126 / 75; Pulse 73; Resp 20; Temp 98.3(TE); Pulse Ox 97% on R/A; Pain 0/10; dsf 09:20 Body Mass Index 35.58 (106.14 kg, 172.72 cm) [facility] Vitals: 09:20 Log In Time: September 30, 2016 at 09:15. [facility] ED Course: 09:20 Patient visited by Patrick Kaur PCA. jrd 09:20 [place] [facility] [place]. jrd 09:20 Patient moved to Waiting jrd 09:22 Patient visited by Patrick Kaur PCA. jrd 09:22 Patient moved to Pre RCE jrd 09:25 Patient visited by Chip Norman, JC. mlb1 09:26 Triage Initiated mlb1 09:32 Patient visited by Chip Norman, RN. mlb1 09:32 Kaya Felix, JC is Primary Nurse. mlb1 09:32 Hayley Farrell,JC is Primary Nurse. mlb1 09:32 Patient moved to I6 mlb1 09:32 The patient / caregiver is instructed regarding the plan of care and ED course. Patient dsf has correct armband on for positive identification. Placed in gown. Bed in low position. Call light in reach. Side rails up X2. 09:36 Bro Johns PA-C is PHCP. ar2 09:36 Nas Amanda MD is Attending Physician. ar2 09:36 Patient visited by Bro Johns PA-C. ar2 10:07 UA Sent. jc4 10:07 Liver Profile Sent. jc4 10:07 MED Profile Sent. jc4 10:07 CBC with Diff Sent. jc4 10:07 Inserted saline lock: 20 gauge in right antecubital area. ja5 10:12 Patient visited by Jyotsna Melo,JC. dsf 10:31 Patient visited by Jyotsna Melo RN. dsf 10:[address] dsf 11:08 Patient moved to I6 dsf 11:09 Patient visited by Jyotsna Melo RN. dsf 11:38 [facility] Payment Agreement was scanned into [employer] Forms and attached to record. lg 11:51 Patient visited by Jyotsna Melo RN. dsf 12:09 CT ABD & PELVIS: No Contrast Returned. EDMS 12:24 Jose E Leonard is Referral Physician. ar2 12:40 Discontinued lock intact, bleeding controlled, pressure dressing applied, No dsf redness/swelling at site. No procedures done that require assistance. 10/01 13:31 T-Sheet-- Draft Copy was scanned into [employer] Forms and attached to record. gb 13:31 Radiology Report was scanned into [employer] Forms and attached to record. gb Administered Medications: 09/30 10:09 Drug: NS 0.9% 1000 ml [sodium chloride 0.9 % injection solution] Route: IV; Rate: dsf bolus; Site: right antecubital; 12:43 Follow up: IV Status: Completed infusion; IV Intake: 1000ml dsf 10:10 Drug: ketorolac 30 mg [ketorolac 30 mg/mL (1 mL) injection solution (1 mL)] Route: IVP; dsf Site: right antecubital; 10:29 Follow up: Pain 3/10 Adult dsf 10:10 Drug: Ondansetron 4 mg [ondansetron HCl 2 mg/mL intravenous solution (2 mL)] Route: dsf IVP; Site: right antecubital; 11:50 Drug: morphine 4 mg [morphine 4 mg/mL intravenous cartridge (1 mL)] Route: IVP; Site: dsf right antecubital; 12:18 Follow up: BP 126 / 75; Pulse 73 bpm; Resp 20 bpm; Temp 98.3 Temporal; Pulse Ox 97% RA; dsf Pain 0/10 Adult Intake: 12:43 IV: 1000.00ml; Total: 1000.00ml. dsf Order Results: Lab Order: CBC with Diff; SPEC'M 09/30/16 10:04 Test: WHITE BLOOD COUNT; Value: 8.7; Range: 4.0-10.0; Units: K/mm3; Status: F Test: RED BLOOD COUNT; Value: 5.51; Range: 4.30-6.10; Units: M/mm3; Status: F Test: HEMOGLOBIN; Value: 16.6; Range: 14.0-18.0; Units: g/dl; Status: F Test: HEMATOCRIT; Value: 48.3; Range: 42.0-52.0; Units: %; Status: F Test: MEAN CORPUSCULAR VOLUME; Value: 87.6; Range: 80.0-96.0; Units: fl; Status: F Test: MEAN CORPUSCULAR HEMOGLOBIN; Value: 30.1; Range: 27.0-33.0; Units: pg; Status: F Test: MEAN CORPUSCULAR HGB CONC; Value: 34.3; Range: 32.0-36.5; Units: g/dl; Status: F Test: RED CELL DISTRIBUTION WIDTH; Value: 12.9; Range: 11.5-14.5; Units: %; Status: F Test: PLATELET COUNT, AUTOMATED; Value: 249; Range: 150-450; Units: k/mm3; Status: F Test: NEUTROPHILS %; Value: 68.7; Range: 36.0-66.0; Abnormal: Above high normal; Units: %; Status: F Test: LYMPH %; Value: 23.0; Range: 24.0-44.0; Abnormal: Below low normal; Units: %; Status: F Test: MONO %; Value: 4.2; Range: 0.0-5.0; Units: %; Status: F Test: EOS %; Value: 2.2; Range: 0.0-3.0; Units: %; Status: F Test: BASO %; Value: 0.3; Range: 0.0-1.0; Units: %; Status: F Test: LARGE UNSTAINED CELL %; Value: 1.6; Range: 0.0-4.0; Units: %; Status: F Test: NEUTROPHILS #; Value: 6.0; Range: 1.8-7.7; Units: K/mm3; Status: F Test: LYMPH #; Value: 2.0; Range: 1.5-4.5; Units: K/mm3; Status: F Test: MONO #; Value: 0.4; Range: 0.0-0.8; Units: K/mm3; Status: F Test: EOS #; Value: 0.2; Range: 0.0-0.50; Units: K/mm3; Status: F Test: BASO #; Value: 0.0; Range: 0.0-0.2; Units: K/mm3; Status: F Test: LARGE UNSTAINED CELL #; Value: 0.1; Range: 0.0-0.4; Units: K/mm3; Status: F Lab Order: MED Profile; SPEC'M 09/30/16 10:04 Test: GLUCOSE, FASTING; Value: 181; Range: 80-110; Abnormal: Above high normal; Units: MG/DL; Status: F Test: BLOOD UREA NITROGEN; Value: 23; Range: 7-18; Abnormal: Above high normal; Units: MG/DL; Status: F Test: CREATININE FOR GFR; Value: 1.33; Range: 0.70-1.30; Abnormal: Above high normal; Units: MG/DL; Status: F Test: GLOMERULAR FILTRATION RATE; Value: 57.8; Range: >49; Status: F Test: SODIUM LEVEL; Value: 140; Range: 136-145; Units: MEQ/L; Status: F Test: POTASSIUM SERUM; Value: 4.2; Range: 3.5-5.1; Units: MEQ/L; Status: F Test: CHLORIDE LEVEL; Value: 106; Range: 98-107; Units: MEQ/L; Status: F Test: CARBON DIOXIDE LEVEL; Value: 24; Range: 21-32; Units: MEQ/L; Status: F Test: ANION GAP; Value: 10; Range: 8-16; Units: MEQ/L; Status: F Test: CALCIUM LEVEL; Value: 9.5; Range: 8.8-10.2; Units: MG/DL; Status: F Test Note: ; Units are mL/min/1.73 m2 Chronic Kidney Disease Staging per NKF: Stage I & II GFR >=60 Normal to Mildly Decreased Stage III GFR 30-59 Moderately Decreased Stage IV GFR 15-29 Severely Decreased Stage V GFR <15 Very Little GFR Left ESRD GFR <15 on [employer]OTOGR[employer]HER Lab Order: Liver Profile; SPEC'M 09/30/16 10:04 Test: AST/SGOT; Value: 16; Range: 15-37; Units: U/L; Status: F Test: ALT/SGPT; Value: 39; Range: 12-78; Units: U/L; Status: F Test: ALKALINE PHOSPHATASE; Value: 127; Range: 45-117; Abnormal: Above high normal; Units: U/L; Status: F Test: BILIRUBIN,TOTAL; Value: 0.8; Range: 0.2-1.0; Units: MG/DL; Status: F Test: BILIRUBIN,DIRECT; Value: 0.2; Range: 0.0-0.2; Units: MG/DL; Status: F Test: TOTAL PROTEIN; Value: 7.9; Range: 6.4-8.2; Units: GM/DL; Status: F Test: ALBUMIN; Value: 4.2; Range: 3.2-5.2; Units: GM/DL; Status: F Test: ALBUMIN/GLOBULIN RATIO; Value: 1.14; Range: 1.00-1.93; Status: F Lab Order: UA; SPEC'M 09/30/16 10:04 Test: APPEARANCE, URINE; Value: CLEAR; Range: CLEAR; Status: F Test: COLOR, URINE; Value: YELLOW; Range: YELLOW; Status: F Test: PH,URINE; Value: 8.0; Range: 5.0-9.0; Units: UNITS; Status: F Test: SPECIFIC GRAVITY URINE AUTO; Value: 1.017; Range: 1.002-1.035; Status: F Test: PROTEIN, URINE AUTO; Value: NEGATIVE; Range: NEGATIVE; Units: mg/dL; Status: F Test: GLUCOSE, URINE (UA) AUTO; Value: NEGATIVE; Range: NEGATIVE; Units: mg/dL; Status: F Test: KETONE, URINE AUTO; Value: TRACE; Range: NEGATIVE; Abnormal: Above high normal; Units: mg/dL; Status: F Test: UROBILINOGEN, URINE AUTO; Value: 0.2; Range: 0.0-2.0; Units: mg/dL; Status: F Test: BILIRUBIN, URINE AUTO; Value: NEGATIVE; Range: NEGATIVE; Status: F Test: NITRITE, URINE AUTO; Value: NEGATIVE; Range: NEGATIVE; Status: F Test: LEUKOCYTE ESTERASE, URINE AUTO; Value: NEGATIVE; Range: NEGATIVE; Status: F Test: BLOOD, URINE BLOOD; Value: 2+; Range: NEGATIVE; Abnormal: Above high normal; Status: F Test: WBC, URINE AUTO; Value: 1; Range: 0-3; Units: /HPF; Status: F Test: RBC, URINE AUTO; Value: 50; Range: 0-3; Abnormal: Above high normal; Units: /HPF; Status: F Test: BACTERIA, URINE AUTO; Value: NEGATIVE; Range: NEGATIVE; Status: F Test: SQUAMOUS EPITHELIAL CELL UR AU; Value: 0; Range: 0-6; Units: /HPF; Status: F Test: MUCUS, URINE; Value: SMALL; Range: NEGATIVE; Status: F Test: HYALINE CAST, URINE AUTO; Value: 0; Range: 0-1; Units: /LPF; Status: F Radiology Order: CT ABD & PELVIS: No Contrast Test: CT ABD & PELVIS: No Contrast REASON FOR EXAMINATION: right flank pain; CT ABDOMEN/PELVIS WITHOUT IV OR ORAL CONTRAST:; ; HISTORY: Right-sided flank pain.; ; COMPARISON: CT study September 28, 2013.; ; FINDINGS: Digital commodity management specialist radiograph is unremarkable. The lung bases show minimal; fibrotic changes but are otherwise clear. No pleural effusion is seen.; ; The liver and spleen are normal in size and homogeneous in texture. There are; several small accessory splenules in the left upper quadrant, unchanged. Pancreas; and gallbladder are unremarkable. No adrenal lesion is seen on either side. No; retroperitoneal mass or adenopathy is seen.; ; There is moderate hydronephrosis on the right with hydroureter due to a calculus; in the distal ureter at the ureterovesical junction. This calculus measures 6 mm; in greatest diameter. There is also a 3 mm intrarenal calculus in the right; kidney lower pole. There is some perinephric stranding and periureteral; stranding associated with this ureteral obstruction. No hydronephrosis is noted; on the left. There is a tiny intrarenal calculus at the lower pole of the left; kidney 1-2 mm in diameter.; ; Small and large intestinal bowel loops are normal in the abdomen and pelvis. A; normal appendix is seen in the right lower quadrant. No abdominal wall defect is; seen. No bony destructive lesion is appreciated.; ; IMPRESSION:; ; 1. A 6 mm obstructive calculus right distal ureter at the ureterovesical; junction with moderate right-sided hydronephrosis.; ; 2. There is an intrarenal calculus in the lower pole of the right kidney and an; intrarenal calculus in the lower pole of the left kidney.; ; 3. Otherwise unremarkable CT study of the abdomen and pelvis.; ; ; Signed by; Anish Stevenson MD 09/30/2016 03:04 P; Outcome: 12:24 Discharge ordered by Provider. ar2 12:41 Discharge Assessment: Patient awake, alert and oriented x 3. No cognitive and/or dsf functional deficits noted. Patient verbalized understanding of disposition instructions. patient administered narcotics - yes. Pt provided with safe discharge. The following High Risk Discharge criteria are identified: None. Discharged to home ambulatory, with significant other. Condition: stable. Discharge instructions given to patient, Instructed on discharge instructions, follow up and referral plans. medication usage, no driving heavy equipment, Demonstrated understanding of instructions, medications, Pt was receptive of discharge instructions/ teaching. Prescriptions given X 4. CT Study completed. Property sent home with patient. 12:42 Patient left the ED. dsf Signatures: Dispatcher [employer] EDMS TobyBrynn jaeger, Reg Reg gb Mikala Pennie, Reg Reg lg [place], Chip Harrington RN RN mlb1 Bro Johns, PADonna PAKaya Walden, RN RN jc4 Jyotsna MeloRN RN dsf Patrick Kaur, JAILYN MARKETING COMM[employer]ICATION[employer] ASSOCIATE Hayley Hollingsworth,RN RN ja5 Corrections: (The following items were deleted from the chart) 10:29 10:07 Inserted saline lock: in right antecubital area ja5 [id number] 10:29 10:27 Inserted saline lock: 20 gauge ja5 [email or web address] Chart Complete [facility]
== END 2016-09-30 12:42 | disposition home or self-care (01) ==
LOC: M ED 09:19
DX: N13.0 Hydronephrosis with ureteropelvic junction obstruction (principal); E11.9 Type 2 diabetes mellitus without complications; J44.9 Chronic obstructive pulmonary disease, unspecified; I10 Essential (primary) hypertension; E78.00 Pure hypercholesterolemia, unspecified; Z87.442 Personal history of urinary calculi; Z87.891 Personal history of nicotine dependence; Z79.899 Other long term (current) drug therapy; Z79.4 Long term (current) use of insulin; Z79.51 Long term (current) use of inhaled steroids; Z88.8 Allergy status to other drugs, medicaments and biological substances
CPT/HCPCS: 74176; 80048; 80076; 81001; 85025; 96361; 96374; 96375; 99284; J1885; J2405

== ENCOUNTER → 2016-10-05 | Outpatient (CLI) | payer OTHER ==
[~2016-10-05] VITALS: Ht 172.7 cm; Wt 108.9 kg
[~2016-10-05] MED LIST changes: +NS 1,000 ML IV SCH; +PROPOFOL 200 MG/20 ML VIAL As Ordered ONE
--- NOTE | 2016-10-05 10:31 | ROOR ---
Patient Name: Albert Garrett Procedure Date: 10/05/2016 10:04 AM Date of : 1955 Age: 61 Room: [facility] Gender: Male Note Status: Finalized Procedure: Colonoscopy to Cecum + Biopsy Polypectomy Indications: Screening for colorectal malignant neoplasm, Last colonoscopy: 2004 Providers: Clayton Fung MD Referring MD: ZACHARY SHARMA MD Requesting Provider: Medicines: Monitored Anesthesia Care Complications: No immediate complications. Procedure: Pre-Anesthesia Assessment: - The heart rate, respiratory rate, oxygen saturations, blood pressure, adequacy of pulmonary ventilation, and response to care were monitored throughout the procedure. The Colonoscope was introduced through the anus and advanced to the cecum, identified by appendiceal orifice and ileocecal valve. The colonoscopy was performed without difficulty. The patient tolerated the procedure well. The quality of the bowel preparation was excellent. Findings: The perianal and digital rectal examinations were normal. Non-bleeding internal hemorrhoids were found during retroflexion. The hemorrhoids were small and Grade I (internal hemorrhoids that do not prolapse). Scattered small-mouthed diverticula were found in the recto-sigmoid colon, sigmoid colon and descending colon. A small polyp was found in the distal transverse colon. The polyp was sessile. The polyp was removed with a cold biopsy forceps. Resection and retrieval were complete. The exam was otherwise without abnormality on direct and retroflexion views. Impression: - Non-bleeding internal hemorrhoids. - Diverticulosis in the recto-sigmoid colon, in the sigmoid colon and in the descending colon. - One small polyp in the distal transverse colon, removed with a cold biopsy forceps. Resected and retrieved. - The examination was otherwise normal on direct and retroflexion views. - The exam was otherwise normal to the cecum. Recommendation: - Patient has a contact number available for emergencies. The signs and symptoms of potential delayed complications were discussed with the patient. Return to normal activities tomorrow. Written discharge instructions were provided to the patient. - High fiber diet. - Discharge patient to home. - Continue present medications. - Await pathology results. - Telephone GI clinic for pathology results in 1 week. - Repeat colonoscopy for surveillance based on pathology results. - Return to referring physician. - The findings and recommendations were discussed with the patient's family. Clayton Fung MD Clayton Fung MD 10/05/2016 10:31:26 AM This report has been signed electronically. Number of Addenda: 0 Note Initiated On: 10/05/2016 10:04 AM Estimated Blood Loss: Estimated blood loss: none.
[2016-10-05 10:45] VITALS: BP 150/100
== END | disposition home or self-care (01) ==
LOC: M OPP 08:59
PROVIDERS: ATTEND Internal Medicine Gastroenterology
DX: Z12.11 Encounter for screening for malignant neoplasm of colon (principal); D12.2 Benign neoplasm of ascending colon; K57.30 Diverticulosis of large intestine without perforation or abscess without bleeding; K64.0 First degree hemorrhoids; R12 Heartburn; I10 Essential (primary) hypertension; E78.5 Hyperlipidemia, unspecified; E11.9 Type 2 diabetes mellitus without complications; G47.30 Sleep apnea, unspecified; Z88.8 Allergy status to other drugs, medicaments and biological substances; Z79.82 Long term (current) use of aspirin; Z79.84 Long term (current) use of oral hypoglycemic drugs; Z79.51 Long term (current) use of inhaled steroids; Z79.899 Other long term (current) drug therapy; Z87.891 Personal history of nicotine dependence; Z83.71 Family history of colonic polyps

== ENCOUNTER → 2016-10-06 | Outpatient (REF) | payer OTHER ==
[~2016-10-06] MED LIST changes: -NS 1,000 ML IV SCH; -PROPOFOL 200 MG/20 ML VIAL As Ordered ONE
== END ==
LOC: M SMT 13:16
PROVIDERS: ATTEND Nurse Practitioner Women's Health
DX: N13.2 Hydronephrosis with renal and ureteral calculous obstruction (principal)

== ENCOUNTER → 2016-10-20 | Outpatient (CLI) | payer OTHER ==
--- NOTE | 2016-10-20 10:57 | REP ---
KUB, ONE VIEW: HISTORY: Ureteral calculus. Air is present in small and large intestine. There are no air fluid levels or dilated loops of intestine. There is no pneumoperitoneum. A punctate calcification is present overlying the right kidney consistent with nephrolithiasis. IMPRESSION: Right nephrolithiasis. Signed by Oj Jennings MD 10/20/2016 11:10 A
[2016-10-22 00:07] LABS: PSA % FREE 19.6 % (.); PSA FREE 1.1 ng/mL; PSA TOTAL 5.6 ng/mL (0.0-4.0)
== END ==
LOC: M SMT 08:48
PROVIDERS: ATTEND Nurse Practitioner Women's Health
DX: N20.0 Calculus of kidney (principal); R97.20 Elevated prostate specific antigen [PSA]
CPT/HCPCS: 36415; 74000; 84154; G0463

== ENCOUNTER → 2017-02-03 | Outpatient (CLI) | payer OTHER ==
[2017-02-04 14:15] LABS: PSA TOTAL 3.7 ng/mL (0.0-4.0)
== END ==
LOC: M SMT 08:57
PROVIDERS: ATTEND Nurse Practitioner Women's Health
DX: R97.21 Rising PSA following treatment for malignant neoplasm of prostate (principal)

== ENCOUNTER 2019-02-06 03:57 | Emergency (ER) | payer MEDICARE, OTHER ==
[~2019-02-06] VITALS: Ht 172.7 cm; Wt 110.0 kg
[~2019-02-06 03:57] MED LIST changes: -GUAI400T6 PO; +GUAI400T9 PO
[2019-02-06 04:50] LABS: BASO # 0.1 10^3/uL (0.0-0.2); BASO % 0.4 % (0.0-1.0); EOS # 0.1 10^3/uL (0.0-0.50); EOS % 0.8 % (0.0-3.0); HEMATOCRIT 53.4 % (42.0-52.0); HEMOGLOBIN 18.1 g/dl (13.5-17.5); LYMPH # 2.3 10^3/uL (1.5-4.5); LYMPH % 17.2 % (24.0-44.0); MEAN CORPUSCULAR HEMOGLOBIN 30.5 pg (27.0-33.0); MEAN CORPUSCULAR HGB CONC 33.9 g/dl (32.0-36.5); MEAN CORPUSCULAR VOLUME 90.1 fl (80.0-96.0); MONO # 0.9 10^3/uL (0.0-0.8); MONO % 6.5 % (0.0-5.0); NEUTROPHILS # 10.1 10^3/uL (1.8-7.7); NEUTROPHILS % 74.6 % (36.0-66.0); PLATELET COUNT, AUTOMATED 259 10^3/uL (150-450); RED BLOOD COUNT 5.93 10^6/uL (4.30-6.10); WHITE BLOOD COUNT 13.6 10^3/uL (4.0-10.0)
[2019-02-06 05:00] LABS: INR 0.92; PARTIAL THROMBOPLASTIN TIME 30.3 SECONDS (25.4-37.6); PROTHROMBIN TIME 12.4 SECONDS (12.1-14.4)
[2019-02-06 05:22] LABS: ALBUMIN 4.3 GM/DL (3.2-5.2); ALT/SGPT 46 U/L (12-78); AMYLASE 42 U/L (25-115); BILIRUBIN,DIRECT 0.2 MG/DL (0.0-0.2); BILIRUBIN,TOTAL 0.6 MG/DL (0.2-1.0); BLOOD UREA NITROGEN 21 MG/DL (7-18); CALCIUM LEVEL 9.5 MG/DL (8.8-10.2); CARBON DIOXIDE LEVEL 22 MEQ/L (21-32); CHLORIDE LEVEL 107 MEQ/L (98-107); CK-MB VALUE MASS < 1.0 NG/ML (<3.6); CPK CREATINE PHOSPHOKINASE 70 U/L (39-308); GLOMERULAR FILTRATION RATE > 60.0 (>49); GLUCOSE, FASTING 169 MG/DL (70-100); LIPASE 86 U/L (73-393); MB/CK RELATIVE INDEX 1.43 (< OR =4); POTASSIUM SERUM 4.2 MEQ/L (3.5-5.1); SODIUM LEVEL 138 MEQ/L (136-145); TOTAL PROTEIN 7.8 GM/DL (6.4-8.2); TROPONIN I 0.02 NG/ML (< 0.10)
--- NOTE | 2019-02-06 06:08 | ECGEPIP ---
[facility] - ED Test Date: 2019-02-06 Pat Name: KRISTY RUCKER Department: Room: - Gender: Male Credit Review Manager: SANDIP : 1955 Requested By: DALI Hunter Order Number: [id number] Reading MD: Solis Em Measurements Intervals [place] Rate: 68 P: 50 DC: 142 QRS: QRSD: 90 T: 64 QT: 392 QTc: 419 Interpretive Statements SINUS RHYTHM BORDERLINE LEFT AXIS DEVIATION NONSPECIFIC T-WAVE ABNORMALITY NO PRIORS FOR COMPARISON Electronically Signed on 02-06-2019 6:08:06 EDT by Solis Em
[2019-02-06] MEDS ORDERED: ONDANSETRON 4MG/2ML VIAL (J2405) IV ONE ×2 (07:00→12:15)
[2019-02-06] MEDS ORDERED: NS 1,000 ML IV ONE (07:00)
[2019-02-06] MEDS ORDERED: ONDA4TAB6 PO (11:57)
[2019-02-06 12:49] VITALS: BP 154/79
== END 2019-02-06 13:05 | disposition home or self-care (01) ==
LOC: M ED 03:57
DX: K52.9 Noninfective gastroenteritis and colitis, unspecified (principal); E86.0 Dehydration; E11.9 Type 2 diabetes mellitus without complications; I10 Essential (primary) hypertension; E78.5 Hyperlipidemia, unspecified; Z87.442 Personal history of urinary calculi; Z79.84 Long term (current) use of oral hypoglycemic drugs; Z79.82 Long term (current) use of aspirin; Z79.899 Other long term (current) drug therapy; Z88.8 Allergy status to other drugs, medicaments and biological substances
CPT/HCPCS: 80048; 80076; 81001; 82150; 82550; 82553; 83605; 83690; 84484; 85025; 85610; 85730; 87507; 93005; 96361; 96374; 96376; 99284; J2405

== ENCOUNTER 2019-03-06 23:15 | Emergency (ER) | payer MEDICARE, OTHER ==
[~2019-03-06] VITALS: Ht 172.7 cm; Wt 108.6 kg
[~2019-03-06 23:15] MED LIST changes: +ONDA4TAB6 PO
[2019-03-06] MEDS ORDERED: PERC5TAB12 PO (23:21)
[2019-03-06 23:58] LABS: BASO # 0.1 10^3/uL (0.0-0.2); BASO % 0.4 % (0.0-1.0); EOS # 0.2 10^3/uL (0.0-0.50); EOS % 1.5 % (0.0-3.0); HEMATOCRIT 47.1 % (42.0-52.0); HEMOGLOBIN 16.5 g/dl (13.5-17.5); LYMPH # 2.2 10^3/uL (1.5-4.5); MEAN CORPUSCULAR HEMOGLOBIN 31.2 pg (27.0-33.0); MONO # 1.3 10^3/uL (0.0-0.8); MONO % 9.8 % (0.0-5.0); NEUTROPHILS # 9.2 10^3/uL (1.8-7.7); NEUTROPHILS % 70.8 % (36.0-66.0); PLATELET COUNT, AUTOMATED 216 10^3/uL (150-450); RED BLOOD COUNT 5.29 10^6/uL (4.30-6.10)
[2019-03-07 00:22] LABS: ALBUMIN 3.9 GM/DL (3.2-5.2); ALT/SGPT 41 U/L (12-78); BILIRUBIN,DIRECT 0.1 MG/DL (0.0-0.2); BILIRUBIN,TOTAL 0.5 MG/DL (0.2-1.0); BLOOD UREA NITROGEN 24 MG/DL (7-18); CALCIUM LEVEL 9.1 MG/DL (8.8-10.2); CARBON DIOXIDE LEVEL 27 MEQ/L (21-32); CHLORIDE LEVEL 105 MEQ/L (98-107); CREATININE FOR GFR 1.24 MG/DL (0.70-1.30); GLOMERULAR FILTRATION RATE > 60.0 (>49); GLUCOSE, FASTING 139 MG/DL (70-100); LIPASE 104 U/L (73-393); POTASSIUM SERUM 3.9 MEQ/L (3.5-5.1); SODIUM LEVEL 140 MEQ/L (136-145); TOTAL PROTEIN 6.9 GM/DL (6.4-8.2)
[2019-03-07] MEDS ORDERED: KETOROLAC 30 MG/ML VIAL (J1885) IV ONE (02:15)
[2019-03-07] MEDS ORDERED: NS 1,000 ML IV ONE (02:15)
[2019-03-07] MEDS ORDERED: TAMSULOSIN 0.4 MG CAP PO ONE (02:15)
--- NOTE | 2019-03-07 03:49 | REPVR ---
EXAM: CT Abdomen and Pelvis Without Contrast EXAM DATE/TIME: 03/07/2019 1:29 AM CLINICAL HISTORY: 63 years old, male; Abdominal pain; Flank; Right; Additional info: Kidney stones TECHNIQUE: Imaging protocol: Axial computed tomography images of the abdomen and pelvis without contrast. Coronal and sagittal reformatted images were created and reviewed. Radiation optimization: All CT scans at this facility use at least one of these dose optimization techniques: automated exposure control; mA and/or kV adjustment per patient size (includes targeted exams where dose is matched to clinical indication); or iterative reconstruction. COMPARISON: CT ABD PELVIS W/O CONTRAST 09/30/2016 10:59 AM FINDINGS: Lungs: There is bibasilar atelectasis. Heart: No cardiomegaly. No pericardial effusion. Liver: Unremarkable. No liver lesion is seen. The contour of the liver is smooth. No hepatomegaly is noted. Gallbladder and bile ducts: No calcified gallstones are seen. No gallbladder wall thickening, pericholecystic fluid, or pericholecystic inflammatory changes are identified. No dilation of the intrahepatic or extrahepatic bile ducts is noted. Pancreas: Unremarkable. No ductal dilation. Spleen: Unremarkable. No splenomegaly. Incidental note is made of a small accessory spleen. Adrenals: Normal. No mass. Kidneys and ureters: There is a 6 mm x 8 mm x 8 mm calculus in the right ureter at the L4-L5 level that causes moderate right hydroureteronephrosis and extensive right perinephric and right periureteral stranding. There is a 3 mm calculus in the inferior pole of the left kidney. No stones are noted in the right kidney and left ureter. Stomach and bowel: There is a large diverticulum arising from the second portion of the duodenum. There is no evidence for a bowel obstruction, diverticulitis, colitis, pneumatosis intestinalis, intussusception, volvulus, or perforated viscus. Appendix: Normal. No evidence for appendicitis. Intraperitoneal space: Unremarkable. No free air. No fluid collection. Vasculature: No abdominal aortic aneurysm. There are moderate atherosclerotic calcifications. Lymph nodes: Normal. No enlarged lymph nodes. Bladder: Unremarkable. No calculi are noted in the bladder. Reproductive: The prostate gland is enlarged and contains calcifications. The seminal vesicles are unremarkable. Bones/joints: The imaged bony structures are intact. There is no suspicious osteolytic or osteoblastic lesion. There is partial ankylosis of the left sacroiliac joint. There are degenerative changes in the lumbar spine. Bridging paraspinal osteophytes are noted in the thoracic spine. Soft tissues: Unremarkable. IMPRESSION: 1. 6 mm x 8 mm x 8 mm calculus in the right ureter at the L4-L5 level that causes moderate right hydroureteronephrosis. 2. Nonobstructive left nephrolithiasis. 3. Enlarged prostate gland. Electronically signed by: Isaac Mckeon On 03/07/2019 03:49:30 AM
[2019-03-07 05:00] VITALS: BP 117/66
[2019-03-07] MEDS ORDERED: FLOM0.4C39 PO (05:09)
== END 2019-03-07 05:22 | disposition home or self-care (01) ==
LOC: M ED 23:15
DX: N20.1 Calculus of ureter (principal); E11.9 Type 2 diabetes mellitus without complications; I10 Essential (primary) hypertension; J44.9 Chronic obstructive pulmonary disease, unspecified; Z87.442 Personal history of urinary calculi; Z79.899 Other long term (current) drug therapy; Z79.84 Long term (current) use of oral hypoglycemic drugs; Z79.82 Long term (current) use of aspirin; Z88.8 Allergy status to other drugs, medicaments and biological substances
CPT/HCPCS: 74176; 80048; 80076; 81001; 83690; 85025; 96374; 99284; J1885

== ENCOUNTER → 2019-03-15 | Outpatient (CLI) | payer MEDICARE, OTHER ==
[~2019-03-15] MED LIST changes: +FLOM0.4C39 PO; +FLUT44IN INH; +JARD1TAB3 PO; +PERC5TAB12 PO
--- NOTE | 2019-03-15 10:02 | REP ---
KUB ABDOMEN AND PELVIS: Two KUB films of the abdomen and pelvis performed and correlated with a recent CT 03/07/2019 and the prior KUB 10/20/2016. Bowel gas pattern is normal. There may be a calculus in the right ureter at the level of the sacrum. On the CT of 03/07/2019, a calculus was seen at the L4-5 level. A couple of tiny phleboliths are seen in the left pelvis inferiorly. There are degenerative changes of the spine. IMPRESSION: Possible right ureteral calculus overlying the right sacrum. Electronically Signed by Rasheed Knight MD 03/15/2019 10:12 A
== END ==
LOC: M SMT 09:17
PROVIDERS: ATTEND Nurse Practitioner Women's Health
DX: I87.8 Other specified disorders of veins (principal); N13.2 Hydronephrosis with renal and ureteral calculous obstruction
CPT/HCPCS: 74018; G0463

== ENCOUNTER → 2019-03-24 | Outpatient (CLI) | payer MEDICARE, OTHER ==
--- NOTE | 2019-03-24 08:50 | REP ---
Clinical: Preoperative assessment. Ureteral stone . Comparison: None . Technique: PA and lateral. Findings: The mediastinum and cardiac silhouette are normal. The lung maria are clear and without acute consolidation, effusion, or pneumothorax. The skeletal structures are intact and normal. Impression: 1. No acute cardiopulmonary process. Electronically Signed by Elvis Neal MD 03/24/2019 08:41 A
--- NOTE | 2019-03-24 08:52 | REP ---
Clinical: Ureteral stone. Technique: Single supine view of the abdomen and pelvis. Comparison: 03/15/2019 Findings: No definite renal or ureteral calculus is appreciated. However, distal ureteral calculus overlying the sacrum and pelvic bones cannot be excluded. Nonspecific bowel gas pattern. Skeletal structures are stable. Impression: No obvious urinary tract calcification identified. Electronically Signed by Elvis Neal MD 03/24/2019 08:43 A
== END ==
LOC: M SMT 08:24
PROVIDERS: ATTEND Nurse Practitioner Women's Health
DX: Z01.818 Encounter for other preprocedural examination (principal); N13.2 Hydronephrosis with renal and ureteral calculous obstruction
CPT/HCPCS: 71046; 74018; G0463

== ENCOUNTER → 2019-03-31 | Outpatient (CLI) | payer MEDICARE, OTHER ==
--- NOTE | 2019-04-01 09:58 | REP ---
CT ABDOMEN PELVIS WITHOUT CONTRAST: 03/31/2019. CLINICAL HISTORY: Ureteral stone with hydronephrosis. Followup. COMPARISON: 03/07/2019 FINDINGS: Standard noncontrast techniques utilized. CT ABDOMEN: The lung bases without acute finding. Heart size unchanged. No pericardial thickening or effusion and no hiatal hernia. Liver, spleen, gallbladder, pancreas and adrenal glands are unchanged and grossly unremarkable. No splenic focal lesion. There are a few tiny retroperitoneal and mesenteric nodes but none of pathologic size by CT criteria. There is atherosclerotic calcification aorta without aneurysm. Much improved degree of hydronephrosis of the right kidney only mild hydronephrosis present. There is a mild hydroureter down to the level of the inferior aspect of the right SI joint with an oval 8 mm stone present, having migrated inferiorly about 7 cm from the previous study. The perinephric stranding is resolved. There is no ascites or stranding /fluid along the peroneal gutters. Colon and small bowel loops unremarkable. Left kidney without acute finding. There is a tiny pyramidal calcification lower pole on the left about [address] PELVIS: Prostate mildly prominent with calcifications. Bladder without mass, wall thickening or stone. The distal ureters without dilatation or stone. No interval changes in the pelvis. IMPRESSION: 1. An 8 mm right ureteral stone has migrated distally about 7 cm from the previous study on 03/07/2019. However, the hydronephrosis is now only mild and proximal hydroureter is mild. All of the perinephric stranding has resolved since the previous study. No other interval change. Electronically Signed by Howard Vaughan MD 04/01/2019 10:09 A
== END ==
LOC: M RAD 13:45
PROVIDERS: ATTEND Nurse Practitioner Women's Health
DX: N13.2 Hydronephrosis with renal and ureteral calculous obstruction (principal)

== ENCOUNTER → 2019-04-14 | Outpatient (CLI) | payer MEDICARE, OTHER ==
[2019-04-14 13:34] LABS: APPEARANCE, URINE CLEAR (CLEAR); BACTERIA, URINE AUTO NEGATIVE (NEGATIVE); BILIRUBIN, URINE AUTO NEGATIVE (NEGATIVE); BLOOD, URINE BLOOD NEGATIVE (NEGATIVE); COLOR, URINE YELLOW (YELLOW); GLUCOSE, URINE (UA) AUTO 3+ mg/dL (NEGATIVE); KETONE, URINE AUTO TRACE mg/dL (NEGATIVE); LEUKOCYTE ESTERASE, URINE AUTO NEGATIVE (NEGATIVE); NITRITE, URINE AUTO NEGATIVE (NEGATIVE); PROTEIN, URINE AUTO NEGATIVE (NEGATIVE); RBC, URINE AUTO 0 /HPF (0-3); SPECIFIC GRAVITY URINE AUTO 1.031 (1.002-1.035); SQUAMOUS EPITHELIAL CELL UR AU 0 /HPF (0-6); UROBILINOGEN, URINE AUTO 0.2 mg/dL (0.0-2.0); WBC, URINE AUTO 0 /HPF (0-3)
[2019-04-14 13:43] LABS: HEMATOCRIT 47.3 % (42.0-52.0); HEMOGLOBIN 15.8 g/dl (13.5-17.5); MEAN CORPUSCULAR HGB CONC 33.4 g/dl (32.0-36.5); MEAN CORPUSCULAR VOLUME 89.8 fl (80.0-96.0); PLATELET COUNT, AUTOMATED 217 10^3/uL (150-450); RED BLOOD COUNT 5.27 10^6/uL (4.30-6.10); WHITE BLOOD COUNT 7.9 10^3/uL (4.0-10.0)
[2019-04-14 13:53] LABS: BLOOD UREA NITROGEN 23 MG/DL (7-18); CALCIUM LEVEL 9.4 MG/DL (8.8-10.2); CARBON DIOXIDE LEVEL 29 MEQ/L (21-32); CHLORIDE LEVEL 105 MEQ/L (98-107); CREATININE FOR GFR 1.08 MG/DL (0.70-1.30); GLOMERULAR FILTRATION RATE > 60.0 (>49); GLUCOSE, FASTING 229 MG/DL (70-100); INR 0.92; POTASSIUM SERUM 4.2 MEQ/L (3.5-5.1); PROSTATIC SPECIFIC AG MONITOR 4.23 NG/ML (< 4.00); PROTHROMBIN TIME 12.1 SECONDS (11.8-14.0); SODIUM LEVEL 140 MEQ/L (136-145)
[2019-04-14 13:54] LABS: PARTIAL THROMBOPLASTIN TIME 31.9 SECONDS (25.0-38.4)
== END ==
LOC: M SMT 09:27
PROVIDERS: ATTEND Nurse Practitioner Women's Health
DX: Z01.818 Encounter for other preprocedural examination (principal); R97.20 Elevated prostate specific antigen [PSA]; N13.2 Hydronephrosis with renal and ureteral calculous obstruction

== ENCOUNTER 2019-04-21 08:50 | Day surgery (SDC) | payer MEDICARE, OTHER ==
[~2019-04-21] VITALS: Ht 172.7 cm; Wt 107.0 kg
[~2019-04-21 08:50] MED LIST changes: +LR 1,000 ML IV ONE; +LevoFLOXacin IV 500 MG in IV 1 EA IV ONE
[2019-04-21] MEDS ORDERED: LIDOCAINE 2% INJ 100 MG/5 ML SDV (FOR ANES.) As Ordered ONE (08:55)
[2019-04-21] MEDS ORDERED: ONDANSETRON 4MG/2ML VIAL (J2405) As Ordered ONE (08:55)
[2019-04-21] MEDS ORDERED: dexameTHASONE 4 MG/ML 1ML VIAL (J1100) As Ordered ONE (08:55)
[2019-04-21] MEDS ORDERED: propofoL 200 MG/20 ML VIAL As Ordered ONE (08:55)
[2019-04-21] MEDS ORDERED: PHENAZOPYRIDINE 100 MG TAB PO PRN (09:00)
[2019-04-21] MEDS ORDERED: MIDAZOLAM INJ 2 MG/2 ML VIAL (J2250) As Ordered ONE (09:07)
[2019-04-21] MEDS ORDERED: fentaNYL 100 MCG/2 ML INJECTION (J3010) As Ordered ONE ×2 (09:07→10:37)
[2019-04-21] MEDS ORDERED: FLOM0.4C39 PO (09:36)
[2019-04-21] MEDS ORDERED: CONRAY-60 60% 50ML VIAL (Q9961) As Ordered ONE (09:39)
[2019-04-21] MEDS ORDERED: METOCLOPRAMIDE INJ 10MG/2ML VIAL (J2765) IV PRN (12:00)
[2019-04-21] MEDS ORDERED: MEPERIDINE INJ 25 MG/ML VIAL (J2175) IV PRN (12:00)
[2019-04-21] MEDS ORDERED: LR 1,000 ML IV SCH (12:00)
[2019-04-21] MEDS ORDERED: fentaNYL 100 MCG/2 ML INJECTION (J3010) IV PRN (12:00)
[2019-04-21] MEDS ORDERED: oxyCODONE 5MG TAB PO PRN (12:00)
[2019-04-21] MEDS ORDERED: ONDANSETRON 4MG/2ML VIAL (J2405) IV PRN (12:00)
--- NOTE | 2019-04-21 13:02 | REP ---
Retrograde pyelogram: Single view. History: Right ureteral stent placement. 9 seconds of fluoroscopy time is reported. Findings: A single last image hold fluoroscopically obtained spot radiograph of the abdomen documents a unilateral ureteral stent in place. No laterality markers are visible. Electronically Signed by Anish Stevenson MD 04/21/2019 04:03 P
[2019-04-21 13:10] VITALS: BP 145/82
--- NOTE | 2019-04-21 20:38 | RO ---
DATE OF PROCEDURE: 04/21/2019 PREPROCEDURE DIAGNOSIS: 1. Right mid ureteral stone. POSTPROCEDURE DIAGNOSIS: 1. Right mid ureteral stone. 2. Prostatic varices. PROCEDURE PERFORMED: Right ureteroscopic stone extraction with laser lithotripsy of stone, basket extraction of stone, stent placement, fulguration of prostatic varices. SURGEON: Spencer Kirkpatrick MD VISION REHABILITATION THERAPIST: ANESTHESIA: General. INDICATIONS: This 63-year-old man with a past history of urolithiasis has been found to have an 8 mm mid ureteral stone on the right. He has previously had stents. His pain has been controlled. He comes down for stone removal. DESCRIPTION OF PROCEDURE: After obtaining informed consent from the patient, he was taken to the operating room, after adequate induction of anesthetic, he was prepped and draped in the usual manner. The 22-Czech diagnostic cystoscope was advanced to the bladder and the bladder inspected with the 30- and 70-degree lenses. Prostatic urethra measured 4 cm and was noted to have some friable prostatic vessels that bled quite freely. We passed a wire on the patient's right side to the kidney under fluoroscopic control and advanced the rigid mini ureteroscope to the stone, which was taken apart with the 200 micron Holmium laser fiber. We then used multiple passes with the 1.9-Czech basket to clear the ureter of all fragments. Final inspection showed some edema at the point of stone impaction but no remaining stone fragments. During our efforts with the scope, the patient had increasing prostatic bleeding to the point that we needed to irrigate some clot from the bladder with the piston syringe. With this done, we were able to see bleeding prostatic varices, which we used the Bugbee electrode to fulgurate. After obtaining complete hemostasis, the bladder was emptied, and we concluded the case with passage of a 5-Czech [place] stent. The string was detached, the patient to recovery in satisfactory condition. DISPOSITION: He is dismissed home to followup in 2 weeks for cystoscopy and stent removal in the office. He requested 2-week followup as he has an out-of-town to attend next week. Diet as tolerated. Activity light. The patient does have a supply of oxycodone at home. Additionally, prescriptions we gave him for Pyridium, Septra and oxybutynin.
[2019-05-02 10:07] LABS: CA Oxalate Dihy 50 % (.); COMMENT Comment: (.); Ca Ox Monohydrate 15 % (.)
== END 2019-04-21 13:12 | disposition home or self-care (01) ==
LOC: M SDC 08:50
PROVIDERS: ATTEND Urology
DX: N20.1 Calculus of ureter (principal); N42.1 Congestion and hemorrhage of prostate; I10 Essential (primary) hypertension; E78.5 Hyperlipidemia, unspecified; J45.909 Unspecified asthma, uncomplicated; E11.9 Type 2 diabetes mellitus without complications; G47.30 Sleep apnea, unspecified; Z88.8 Allergy status to other drugs, medicaments and biological substances; Z79.82 Long term (current) use of aspirin; Z79.899 Other long term (current) drug therapy
CPT/HCPCS: 52214; 52356; 74420; 82360; 88300; C1769; C2617; J1956; J2250; J2405; J3010

== ENCOUNTER → 2019-07-14 | Outpatient (CLI) | payer MEDICARE, OTHER ==
[~2019-07-14] MED LIST changes: -LR 1,000 ML IV ONE; -LevoFLOXacin IV 500 MG in IV 1 EA IV ONE
--- NOTE | 2019-07-14 11:12 | REP ---
Two-view chest: 07/14/2019. Indication: Cough. Bronchitis. Comparison: 03/24/2019. Findings: The lungs are clear. There is no pleural effusion or pneumothorax. The cardiomediastinal silhouette is unremarkable. Impression: No acute cardiopulmonary process. Electronically Signed by Niels Rodarte DO 07/14/2019 11:03 A
[2019-07-14 13:23] LABS: BASO # 0.1 10^3/uL (0.0-0.2); BASO % 0.4 % (0.0-1.0); EOS # 0.3 10^3/uL (0.0-0.5); EOS % 2.3 % (0.0-3.0); HEMOGLOBIN 16.7 g/dl (13.5-17.5); LYMPH % 16.4 % (24.0-44.0); MEAN CORPUSCULAR HEMOGLOBIN 29.8 pg (27.0-33.0); MEAN CORPUSCULAR HGB CONC 32.7 g/dl (32.0-36.5); MEAN CORPUSCULAR VOLUME 91.1 fl (80.0-96.0); MONO # 0.9 10^3/uL (0.0-0.8); MONO % 7.6 % (0.0-5.0); NEUTROPHILS # 8.8 10^3/uL (1.5-8.5); NEUTROPHILS % 72.7 % (36.0-66.0); PLATELET COUNT, AUTOMATED 260 10^3/uL (150-450)
== END ==
LOC: M ADAMS 09:49
PROVIDERS: ATTEND Physician Assistant Medical
DX: J20.9 Acute bronchitis, unspecified (principal)

== ENCOUNTER → 2019-11-01 | Outpatient (REF) | payer MEDICARE, OTHER | LOC: M LABSMT 08:36 | PROVIDERS: ATTEND Nurse Practitioner Women's Health | DX: R97.20 Elevated prostate specific antigen [PSA] (principal) | CPT/HCPCS: 84153; G0463 ==

== ENCOUNTER → 2020-11-22 | Outpatient (REF) | payer MEDICARE, OTHER ==
[~2020-11-22] MED LIST changes: -ASPI81TA85 PO; +ASPI81TA86 PO
== END ==
LOC: M PLALAB 13:26
PROVIDERS: ATTEND Nurse Practitioner Women's Health
DX: R97.20 Elevated prostate specific antigen [PSA] (principal)

== ENCOUNTER → 2020-11-28 | Outpatient (REF) | payer MEDICARE, OTHER ==
[2020-11-28 13:28] LABS: APPEARANCE, URINE HAZY (CLEAR); BACTERIA, URINE AUTO NEGATIVE (NEGATIVE); BILIRUBIN, URINE AUTO NEGATIVE (NEGATIVE); BLOOD, URINE BLOOD NEGATIVE (NEGATIVE); CALCIUM OXALATE CRYSTALS SMALL; COLOR, URINE YELLOW (YELLOW); GLUCOSE, URINE (UA) AUTO 1+ mg/dL (NEGATIVE); KETONE, URINE AUTO 2+ mg/dL (NEGATIVE); LEUKOCYTE ESTERASE, URINE AUTO TRACE (NEGATIVE); MUCUS, URINE SMALL (NEGATIVE); NITRITE, URINE AUTO NEGATIVE (NEGATIVE); PROTEIN, URINE AUTO 1+ mg/dL (NEGATIVE); RBC, URINE AUTO 1 /HPF (0-3); SPECIFIC GRAVITY URINE AUTO 1.021 (1.002-1.035); SQUAMOUS EPITHELIAL CELL UR AU 0 /HPF (0-6); WBC, URINE AUTO 36 /HPF (0-3)
== END ==
LOC: M LABSMT 08:45 → M SFHCADAM 08:46
PROVIDERS: ATTEND Nurse Practitioner Women's Health
DX: N40.0 Benign prostatic hyperplasia without lower urinary tract symptoms (principal)

== ENCOUNTER → 2020-12-31 | Outpatient (CLI) | payer MEDICARE, OTHER ==
--- NOTE | 2020-12-31 12:58 | REPPI ---
INDICATION: ELEVATED PSA. COMPARISON: None. TECHNIQUE: Transrectal prostate ultrasound performed, with ultrasound guidance provided for Dr. Leonard who performed ultrasound-guided biopsy. FINDINGS: Prostate measures 6.1 x 4.1 x 5.8 cm, total volume 76.4 mL. Echotexture is heterogeneous with scattered cysts and calcifications. No focal peripheral zone mass is seen. Seminal vesicles appear symmetrical. IMPRESSION: Prostate ultrasound as above, ultrasound guidance was provided for Dr. Leonard who performed ultrasound-guided biopsy of the prostate. <Electronically signed by Rasheed Knight > 12/31/20 [id number]
== END ==
LOC: M SMT PRO 08:14
PROVIDERS: ATTEND Urology
DX: R97.20 Elevated prostate specific antigen [PSA] (principal)
CPT/HCPCS: 55700; 76872; 76942; G0416

== ENCOUNTER → 2021-07-01 | Outpatient (CLI) | payer MEDICARE, OTHER | LOC: M PLALAB 10:46 | PROVIDERS: ATTEND Urology | DX: R97.20 Elevated prostate specific antigen [PSA] (principal) ==

== ENCOUNTER → 2021-07-03 | Outpatient (CLI) | payer MEDICARE, OTHER ==
--- NOTE | 2021-07-03 10:27 | REP ---
INDICATION: L KNEE ARTHROPLASTY. COMPARISON: 07/14/2019 TECHNIQUE: PA and lateral FINDINGS: The superior mediastinal structures are midline. The cardiac silhouette is unremarkable in size, shape, and position. The diaphragmatic surfaces of the lungs are regular, and the costophrenic angles are clear. The pulmonary maria are clear. The imaged osseous structures are intact. IMPRESSION: There is no acute cardiopulmonary disease. <Electronically signed by Carl Eaton > 07/03/21 1022
[2021-07-03 11:14] LABS: HEMATOCRIT 48.3 % (42.0-52.0); HEMOGLOBIN 15.9 g/dl (13.5-17.5); MEAN CORPUSCULAR HEMOGLOBIN 30.1 pg (27.0-33.0); MEAN CORPUSCULAR HGB CONC 32.9 g/dl (32.0-36.5); MEAN CORPUSCULAR VOLUME 91.5 fl (80.0-96.0); PLATELET COUNT, AUTOMATED 239 10^3/uL (150-450); RED BLOOD COUNT 5.28 10^6/uL (4.30-6.10); WHITE BLOOD COUNT 9.5 10^3/uL (4.0-10.0)
[2021-07-03 11:29] LABS: INR 0.95; PROTHROMBIN TIME 13.1 SECONDS (12.7-14.5)
[2021-07-03 11:46] LABS: ALBUMIN 3.8 GM/DL (3.2-5.2); ALT/SGPT 35 U/L (12-78); BILIRUBIN,TOTAL 0.7 MG/DL (0.2-1.0); BLOOD UREA NITROGEN 21 MG/DL (7-18); CALCIUM LEVEL 9.4 MG/DL (8.8-10.2); CARBON DIOXIDE LEVEL 31 MEQ/L (21-32); CHLORIDE LEVEL 103 MEQ/L (98-107); CREATININE FOR GFR 1.21 MG/DL (0.70-1.30); GLOMERULAR FILTRATION RATE > 60.0 (>49); GLUCOSE, FASTING 104 MG/DL (70-100); POTASSIUM SERUM 3.7 MEQ/L (3.5-5.1); SODIUM LEVEL 138 MEQ/L (136-145)
[2021-07-03 11:54] LABS: ERYTHROCYTE SEDIMENTATION RATE 2 mm/hr (0-20)
--- NOTE | 2021-07-03 12:46 | ECGEPIP ---
[facility] Test Date: 2021-07-03 Pat Name: KRISTY RUCKER Department: Room: - Gender: Male [employer]: CHARY : 1955 Requested By: Rachana Awad Order Number: [id number] Reading MD: Kia Seymour Measurements Intervals [place] Rate: 72 P: 62 MD: 154 QRS: -32 QRSD: 76 T: 56 QT: 384 QTc: 420 Interpretive Statements Normal sinus rhythm Left axis deviation PRWP //same nonspec st t abn C/W 02/06/19 Electronically Signed on 07-03-2021 12:45:50 EST by Kia Seymour
== END ==
LOC: M RAD 10:05
PROVIDERS: ATTEND Orthopaedic Surgery
DX: Z01.818 Encounter for other preprocedural examination (principal); M17.12 Unilateral primary osteoarthritis, left knee

== ENCOUNTER → 2021-07-10 | Outpatient (CLI) | payer MEDICARE, OTHER ==
--- NOTE | 2021-07-10 09:07 | REP ---
INDICATION: SCREENING FOR CARDIOVASCULAR DISORDERS COMPARISON: None. TECHNIQUE: Real time ha scale ultrasound examination using curved array transducer. FINDINGS: The abdominal aorta is normal by sonographic evaluation without significant atherosclerotic changes and no evidence for aneurysm. Proximal aorta: Obscured by bowel gas Aorta at renal arteries: Obscured by bowel gas Mid aorta: 2.0 x 2.4 cm Distal aorta: 1.7 x 2.1 cm Right common iliac artery: 1.3 x 1.3 cm Left common iliac artery: 1.3 x 1.3 cm IMPRESSION: No evidence for abdominal aortic aneurysm. <Electronically signed by Elvis Neal > 07/10/21 0903
== END ==
LOC: M WHC 06:53
PROVIDERS: ATTEND Student in an Organized Health Care Education/Training Program
DX: Z13.6 Encounter for screening for cardiovascular disorders (principal); Z87.891 Personal history of nicotine dependence

== ENCOUNTER → 2021-10-03 | Outpatient (CLI) | payer MEDICARE, OTHER ==
[~2021-10-03] MED LIST changes: -MOME50SP; +NASO50SP3
== END ==
LOC: M LABSMTC 09:16
PROVIDERS: ATTEND Ophthalmology
DX: Z01.812 Encounter for preprocedural laboratory examination (principal); H26.9 Unspecified cataract; Z20.822 Contact with and (suspected) exposure to COVID-19

== ENCOUNTER → 2021-10-10 | Outpatient (CLI) | payer MEDICARE, OTHER | LOC: M LABSMTC 11:27 | PROVIDERS: ATTEND Ophthalmology | DX: Z20.828 Contact with and (suspected) exposure to other viral communicable diseases (principal); Z11.59 Encounter for screening for other viral diseases ==

== ENCOUNTER → 2022-01-07 | Outpatient (CLI) | payer MEDICARE, OTHER ==
[2022-01-08 23:07] LABS: PSA % FREE 16.8 % (.); PSA FREE 1.24 ng/mL; PSA TOTAL 7.4 ng/mL (0.0-4.0)
== END ==
LOC: M PLALAB 09:11
PROVIDERS: ATTEND Urology
DX: R97.20 Elevated prostate specific antigen [PSA] (principal)

== ENCOUNTER → 2022-02-08 | Outpatient (CLI) | payer MEDICARE, OTHER ==
[~2022-02-08] MED LIST changes: +ATOR40TA75 PO; +AZEL0.1S; +JARD1TAB PO; +MELO15TA28 PO; +POTA10808 PO; +TRUL0.5I SC; +relief factor PO
== END ==
LOC: M LABSMTC 12:06
PROVIDERS: ATTEND Anesthesiology
DX: Z01.818 Encounter for other preprocedural examination (principal); Z11.52 Encounter for screening for COVID-19

== ENCOUNTER 2022-02-13 08:26 | Day surgery (SDC) | payer MEDICARE, OTHER ==
[~2022-02-13] VITALS: Ht 172.7 cm; Wt 102.1 kg
[~2022-02-13 08:26] MED LIST changes: +NS 1,000 ML IV ONE
[2022-02-13] MEDS ORDERED: propofoL 200 MG/20 ML VIAL As Ordered ONE (09:59)
[2022-02-13] MEDS ORDERED: LIDOCAINE 2% 100MG/5ML SDV (FOR ANES.) As Ordered ONE (09:59)
[2022-02-13 10:45] VITALS: BP 155/94
== END 2022-02-13 10:45 | disposition home or self-care (01) ==
LOC: M OPP 08:26
PROVIDERS: ATTEND Internal Medicine Gastroenterology
DX: Z12.11 Encounter for screening for malignant neoplasm of colon (principal); Z86.010 Personal history of colon polyps; K57.30 Diverticulosis of large intestine without perforation or abscess without bleeding; K64.8 Other hemorrhoids; Z79.02 Long term (current) use of antithrombotics/antiplatelets; Z79.84 Long term (current) use of oral hypoglycemic drugs; Z79.51 Long term (current) use of inhaled steroids; Z79.899 Other long term (current) drug therapy; Z87.442 Personal history of urinary calculi; Z87.891 Personal history of nicotine dependence

== ENCOUNTER → 2022-03-02 | Outpatient (CLI) | payer MEDICARE, OTHER ==
[~2022-03-02] MED LIST changes: -NS 1,000 ML IV ONE
== END ==
LOC: M PLAIMG 10:11
PROVIDERS: ATTEND Nurse Practitioner Women's Health
DX: N13.2 Hydronephrosis with renal and ureteral calculous obstruction (principal)

== ENCOUNTER → 2022-07-21 | Outpatient (CLI) | payer MEDICARE, OTHER ==
[~2022-07-21] MED LIST changes: -HYZA50TA2 PO; +LOSA-532 PO
[2022-07-22 23:07] LABS: PSA % FREE 27.4 % (.); PSA FREE 1.29 ng/mL; PSA TOTAL 4.7 ng/mL (0.0-4.0)
== END ==
LOC: M PLALAB 09:21
PROVIDERS: ATTEND Urology
DX: R97.20 Elevated prostate specific antigen [PSA] (principal)

== ENCOUNTER → 2023-01-14 | Outpatient (CLI) | payer MEDICARE, OTHER ==
[~2023-01-14] MED LIST changes: +MONT-5 PO; -SING10TA32 PO
[2023-01-18 08:10] LABS: PSA % FREE 32.5 % (.); PSA FREE 1.3 ng/mL
== END ==
LOC: M PLALAB 01-13 09:56
PROVIDERS: ATTEND Urology
DX: R97.20 Elevated prostate specific antigen [PSA] (principal)

== ENCOUNTER → 2023-01-22 | Outpatient (CLI) | payer MEDICARE, OTHER | LOC: M PLAIMG 14:24 | PROVIDERS: ATTEND Urology | DX: N20.0 Calculus of kidney (principal) ==

== ENCOUNTER → 2024-01-10 | Outpatient (CLI) | payer MEDICARE, OTHER ==
[2024-01-12 21:08] LABS: PSA FREE 1.52 ng/mL; PSA TOTAL 4.9 ng/mL (0.0-4.0)
== END ==
LOC: M PLALAB 12:51
PROVIDERS: ATTEND Urology
DX: R97.20 Elevated prostate specific antigen [PSA] (principal); N20.0 Calculus of kidney

== ENCOUNTER 2024-05-25 07:39 | Emergency (ER) | payer MEDICARE, OTHER ==
[~2024-05-25] VITALS: Ht 172.7 cm; Wt 98.8 kg
[~2024-05-25 07:39] MED LIST changes: +ONDA-282 PO; -ONDA4TAB6 PO
[2024-05-25] MEDS ORDERED: TIRZ7.5P (07:51)
[2024-05-25 09:48] VITALS: BP 137/74; TEMP 97.5; O2SAT 98
[2024-05-25] MEDS: KETOROLAC 30 MG/ML 1ML VIAL IM ONE (10:05)
== END 2024-05-25 10:11 | disposition home or self-care (01) ==
LOC: M ED 07:39
DX: M75.32 Calcific tendinitis of left shoulder (principal); I10 Essential (primary) hypertension; E11.9 Type 2 diabetes mellitus without complications; G47.30 Sleep apnea, unspecified; Y92.007 Garden or yard of unspecified non-institutional (private) residence as the place of occurrence of the external cause; Y93.89 Activity, other specified; Y99.9 Unspecified external cause status; Z79.02 Long term (current) use of antithrombotics/antiplatelets; Z79.811 Long term (current) use of aromatase inhibitors; Z79.899 Other long term (current) drug therapy; Z88.8 Allergy status to other drugs, medicaments and biological substances; Z87.442 Personal history of urinary calculi
CPT/HCPCS: 73030; 96372; 99283; J1885

== ENCOUNTER → 2024-07-12 | Outpatient (REF) | payer MEDICARE, OTHER ==
[~2024-07-12] MED LIST changes: -AZEL0.1S; +AZEL137S8; +TIRZ7.5P
== END ==
LOC: M SFHCDERM 18:02
PROVIDERS: ATTEND Nurse Practitioner Family
DX: L82.0 Inflamed seborrheic keratosis (principal)

== ENCOUNTER → 2024-11-20 | Outpatient (CLI) | payer MEDICARE, OTHER ==
[~2024-11-20] MED LIST changes: +GLIP2.5T46 PO; -GLIP2.5T6 PO; -POTA10808 PO; +POTA10809 PO
== END ==
LOC: M RAD 07:22
PROVIDERS: ATTEND Internal Medicine
DX: J47.9 Bronchiectasis, uncomplicated (principal)

== ENCOUNTER → 2025-01-08 | Outpatient (CLI) | payer MEDICARE, OTHER ==
[~2025-01-08] MED LIST changes: -FLOM0.4C39 PO; +TAMS-18 PO
[2025-01-10 12:42] LABS: PSA FREE 1.1 ng/mL; PSA TOTAL 6.3 ng/mL (< OR = 4.0)
== END ==
LOC: M PLAIMG 09:05
PROVIDERS: ATTEND Urology
DX: N20.0 Calculus of kidney (principal)

== ENCOUNTER → 2025-07-24 | Outpatient (CLI) | payer MEDICARE, OTHER | LOC: M PLALAB 09:14 | PROVIDERS: ATTEND Urology | DX: R97.20 Elevated prostate specific antigen [PSA] (principal) ==